=== PATIENT | male | born 1940 | race Caucasian/White ===

== ENCOUNTER → 2018-10-18 | Outpatient (REF) | payer MEDICARE, OTHER ==
[~2018-10-18] MED LIST: ATEN50TA2 OR; DILT180C3 OR; ECOT325T5 OR; FLOM0.4C39 OR; MULTIVIT OR; OMEGA FISH OIL OR; [UNRECOGNIZED DRUG - OTHER]
== END ==
LOC: M LAB REF 12:31
PROVIDERS: ATTEND Internal Medicine
DX: R30.0 Dysuria (principal)

== ENCOUNTER 2019-03-28 21:08 | Emergency (ER) | payer MEDICARE, OTHER ==
[~2019-03-28] VITALS: Ht 177.8 cm; Wt 86.4 kg
[2019-03-28] MEDS ORDERED: ATOR1TAB19 (21:35)
[2019-03-28] MEDS ORDERED: AMLO5TAB6 (21:35)
[2019-03-28] MEDS ORDERED: METF500T13 PO (21:36)
[2019-03-28] MEDS ORDERED: ONDANSETRON 4MG/2ML VIAL (J2405) IV ONE (22:00)
[2019-03-28] MEDS ORDERED: NS 1,000 ML IV ONE (22:00)
[2019-03-28 22:19] LABS: BASO % 0.3 % (0.0-1.0); EOS % 0.4 % (0.0-3.0); HEMATOCRIT 50.9 % (42.0-52.0); HEMOGLOBIN 16.7 g/dl (13.5-17.5); LYMPH # 0.5 10^3/uL (1.5-5.0); LYMPH % 7.4 % (24.0-44.0); MEAN CORPUSCULAR HEMOGLOBIN 30.6 pg (27.0-33.0); MEAN CORPUSCULAR HGB CONC 32.8 g/dl (32.0-36.5); MEAN CORPUSCULAR VOLUME 93.4 fl (80.0-96.0); MONO # 0.3 10^3/uL (0.0-0.8); MONO % 4.2 % (0.0-5.0); NEUTROPHILS # 6.2 10^3/uL (1.5-8.5); NEUTROPHILS % 87.3 % (36.0-66.0); PLATELET COUNT, AUTOMATED 163 10^3/uL (150-450); RED BLOOD COUNT 5.45 10^6/uL (4.30-6.10); WHITE BLOOD COUNT 7.1 10^3/uL (4.0-10.0)
[2019-03-28 22:37] LABS: ALBUMIN 3.8 GM/DL (3.2-5.2); ALT/SGPT 23 U/L (12-78); BILIRUBIN,DIRECT 0.3 MG/DL (0.0-0.2); BILIRUBIN,TOTAL 0.8 MG/DL (0.2-1.0); BLOOD UREA NITROGEN 19 MG/DL (7-18); CARBON DIOXIDE LEVEL 23 MEQ/L (21-32); CHLORIDE LEVEL 105 MEQ/L (98-107); CREATININE FOR GFR 0.89 MG/DL (0.70-1.30); GLOMERULAR FILTRATION RATE > 60.0 (>42); GLUCOSE, FASTING 191 MG/DL (70-100); LIPASE 118 U/L (73-393); POTASSIUM SERUM 4.1 MEQ/L (3.5-5.1); SODIUM LEVEL 140 MEQ/L (136-145); TOTAL PROTEIN 7.2 GM/DL (6.4-8.2)
[2019-03-29] MEDS ORDERED: ONDA4TAB6 PO (00:24)
[2019-03-29 01:01] VITALS: BP 145/78
--- NOTE | 2019-03-29 01:13 | REPVR ---
PROCEDURE INFORMATION: Exam: XR Complete Acute Abdomen Series Exam date and time: 03/28/2019 10:28 PM Age: 78 years old Clinical indication: Abdominal pain; Generalized TECHNIQUE: Imaging protocol: XR complete acute abdomen series, including 2 or more views of the abdomen and a single view chest. COMPARISON: No relevant prior studies available. FINDINGS: Lungs: Normal. No consolidation. Pleural space: Normal. No pneumothorax. Heart/Mediastinum: Normal. No cardiomegaly. Gastrointestinal tract: Minimal gas in the GI tract without abnormal dilatation. No abnormal air-fluid levels. Intraperitoneal space: No free air. Organs: Status post cholecystectomy. Bones/joints: Mild degenerative changes of the lower lumbar spine. Soft tissues: Normal. IMPRESSION: 1. Negative chest. 2. Status post cholecystectomy. 3. Otherwise negative abdomen with minimal gas. Electronically signed by: Fran Stauffer On 03/29/2019 01:12:44 AM
== END 2019-03-29 01:10 | disposition home or self-care (01) ==
LOC: M ED 21:08
DX: R11.2 Nausea with vomiting, unspecified (principal); R19.7 Diarrhea, unspecified; E11.9 Type 2 diabetes mellitus without complications; E78.5 Hyperlipidemia, unspecified; E86.0 Dehydration; I10 Essential (primary) hypertension; K21.9 Gastro-esophageal reflux disease without esophagitis; Z79.82 Long term (current) use of aspirin; Z79.84 Long term (current) use of oral hypoglycemic drugs; Z79.899 Other long term (current) drug therapy; Z87.442 Personal history of urinary calculi
CPT/HCPCS: 74021; 80048; 80076; 81001; 83690; 85025; 96361; 96374; 99284; J2405

== ENCOUNTER → 2019-03-29 | Outpatient (REF) | payer MEDICARE, OTHER ==
[~2019-03-29] MED LIST changes: +AMLO5TAB6; +ATOR1TAB19; +METF500T13 PO; +ONDA4TAB6 PO
== END ==
LOC: M LAB REF 13:18
PROVIDERS: ATTEND Physician Assistant
DX: R19.7 Diarrhea, unspecified (principal)

== ENCOUNTER → 2019-10-18 | Outpatient (CLI) | payer MEDICARE, OTHER ==
[~2019-10-18] MED LIST changes: +AMLO1TAB24; -AMLO5TAB6
== END ==
LOC: M LABSMTC 12:44
PROVIDERS: ATTEND Family Medicine
DX: Z11.59 Encounter for screening for other viral diseases (principal)
CPT/HCPCS: C9803; U0003

== ENCOUNTER → 2019-11-25 | Outpatient (REF) | payer MEDICARE, OTHER ==
[2019-11-25 13:37] LABS: PROTHROMBIN TIME 13.4 SECONDS (11.8-14.0)
[2019-11-25 13:38] LABS: PARTIAL THROMBOPLASTIN TIME 29.1 SECONDS (25.0-38.4)
[2019-11-25 13:50] LABS: APPEARANCE, URINE CLEAR (CLEAR); BACTERIA, URINE AUTO NEGATIVE (NEGATIVE); BILIRUBIN, URINE AUTO NEGATIVE (NEGATIVE); BLOOD, URINE BLOOD NEGATIVE (NEGATIVE); COLOR, URINE YELLOW (YELLOW); GLUCOSE, URINE (UA) AUTO 3+ mg/dL (NEGATIVE); KETONE, URINE AUTO NEGATIVE (NEGATIVE); LEUKOCYTE ESTERASE, URINE AUTO NEGATIVE (NEGATIVE); MUCUS, URINE SMALL (NEGATIVE); NITRITE, URINE AUTO NEGATIVE (NEGATIVE); PROTEIN, URINE AUTO NEGATIVE (NEGATIVE); RBC, URINE AUTO 1 /HPF (0-3); SPECIFIC GRAVITY URINE AUTO 1.031 (1.002-1.035); SQUAMOUS EPITHELIAL CELL UR AU 0 /HPF (0-6); UROBILINOGEN, URINE AUTO 0.2 mg/dL (0.0-2.0); WBC, URINE AUTO 1 /HPF (0-3)
== END ==
LOC: M LAB REF 11:57
PROVIDERS: ATTEND Internal Medicine
DX: N40.1 Benign prostatic hyperplasia with lower urinary tract symptoms (principal); N47.1 Phimosis; Z01.818 Encounter for other preprocedural examination; Z79.01 Long term (current) use of anticoagulants

== ENCOUNTER → 2020-02-03 | Outpatient (REF) | payer MEDICARE, OTHER | LOC: M LAB REF 11:05 | PROVIDERS: ATTEND Internal Medicine | DX: R30.0 Dysuria (principal) ==

== ENCOUNTER → 2020-05-03 | Outpatient (CLI) | payer MEDICARE, OTHER | LOC: M LABSMTC 13:33 | PROVIDERS: ATTEND Family Medicine | DX: Z20.822 Contact with and (suspected) exposure to COVID-19 (principal) | CPT/HCPCS: C9803; U0003 ==

== ENCOUNTER → 2021-05-14 | Outpatient (CLI) | payer MEDICARE, OTHER ==
[~2021-05-14] MED LIST changes: +E-Z-GAS II EFFERVESCENT PACKET (SODIUM BICARB./CITRIC ACID/SIMETHICONE) As Ordered ONE; +E-Z-HD 98% w/w 340GM SUSP BTL As Ordered ONE; +E-Z-PAQUE 96% w/w SUSP 176GM BTL As Ordered ONE
== END ==
LOC: M RAD 08:13
PROVIDERS: ATTEND Internal Medicine
DX: R11.0 Nausea (principal); R10.816 Epigastric abdominal tenderness

== ENCOUNTER → 2021-06-17 | Outpatient (CLI) | payer MEDICARE, OTHER ==
[~2021-06-17] MED LIST changes: -E-Z-GAS II EFFERVESCENT PACKET (SODIUM BICARB./CITRIC ACID/SIMETHICONE) As Ordered ONE; -E-Z-HD 98% w/w 340GM SUSP BTL As Ordered ONE; -E-Z-PAQUE 96% w/w SUSP 176GM BTL As Ordered ONE
== END ==
LOC: M RAD 12:57
PROVIDERS: ATTEND Internal Medicine
DX: M25.78 Osteophyte, vertebrae (principal); M51.36 Other intervertebral disc degeneration, lumbar region; M51.37 Other intervertebral disc degeneration, lumbosacral region

== ENCOUNTER 2021-07-28 00:13 | Observation (INO) | payer MEDICARE, OTHER ==
[2021-07-28] VITALS (12 sets, daily range): BP systolic 127–157; BP diastolic 56–82; O2SAT 90–98
[~2021-07-28] VITALS: Ht 177.8 cm; Wt 82.9 kg
[~2021-07-28 00:13] MED LIST changes: -AMLO1TAB24; +AMLO1TAB24 PO; -ATOR1TAB19; +ATOR1TAB19 PO
[2021-07-28 00:48] LABS: BASO % 0.7 % (0.0-1.0); EOS # 0.2 10^3/uL (0.0-0.5); EOS % 4.1 % (0.0-3.0); HEMATOCRIT 43.1 % (42.0-52.0); HEMOGLOBIN 14.4 g/dl (13.5-17.5); LYMPH # 2.6 10^3/uL (1.5-5.0); MEAN CORPUSCULAR HEMOGLOBIN 31.2 pg (27.0-33.0); MEAN CORPUSCULAR HGB CONC 33.4 g/dl (32.0-36.5); MEAN CORPUSCULAR VOLUME 93.5 fl (80.0-96.0); MONO # 0.6 10^3/uL (0.0-0.8); MONO % 10.8 % (2.0-8.0); NEUTROPHILS # 1.9 10^3/uL (1.5-8.5); NEUTROPHILS % 35.2 % (36.0-66.0); PLATELET COUNT, AUTOMATED 168 10^3/uL (150-450); RED BLOOD COUNT 4.61 10^6/uL (4.30-6.10); WHITE BLOOD COUNT 5.4 10^3/uL (4.0-10.0)
[2021-07-28 01:02] LABS: INR 1.09; PROTHROMBIN TIME 14.5 SECONDS (12.7-14.5)
[2021-07-28 01:03] LABS: ABG BASE EXCESS -6.8 (-2.0-2.0); ABG HCO3 17.3 MEQ/L (22.0-26.0); ABG O2 SATURATION 98.9 % (95.0-99.0); ABG PARTIAL PRESSURE CO2 30.9 mmHg (35.0-45.0); ABG PARTIAL PRESSURE O2 159.5 mmHg (75.0-100.0); ABG TOTAL CO2 18.3 MEQ/L (23.0-31.0); ABG pH (ARTERIAL) 7.366 UNITS (7.350-7.450)
[2021-07-28 01:03] LABS: PARTIAL THROMBOPLASTIN TIME 25.5 SECONDS (25.9-37.0)
[2021-07-28 01:19] LABS: ALBUMIN 3.2 GM/DL (3.2-5.2); ALT/SGPT 22 U/L (12-78); AMYLASE 47 U/L (25-115); BILIRUBIN,DIRECT 0.1 MG/DL (0.0-0.2); BILIRUBIN,TOTAL 0.4 MG/DL (0.2-1.0); C REACTIVE PROTEIN QUANTITATIV < 0.30 MG/DL (0.00-0.30); ETHYL ALCOHOL (ETHANOL) 0.085 % (0.000-0.010); TOTAL PROTEIN 5.2 GM/DL (6.4-8.2)
[2021-07-28 01:27] LABS: CK-MB VALUE MASS < 1.0 NG/ML (<3.6); CPK CREATINE PHOSPHOKINASE 92 U/L (39-308); MB/CK RELATIVE INDEX 1.09 (< OR =4)
[2021-07-28] MEDS ORDERED: ONDANSETRON 4MG/2ML VIAL IV ONE (02:15)
[2021-07-28] MEDS ORDERED: MORPHINE 4 MG/ML 1ML VIAL/SYRINGE IV ONE (02:15)
[2021-07-28 03:23] LABS: APPEARANCE, URINE CLEAR (CLEAR); BACTERIA, URINE AUTO NEGATIVE (NEGATIVE); BILIRUBIN, URINE AUTO NEGATIVE (NEGATIVE); BLOOD, URINE BLOOD NEGATIVE (NEGATIVE); COLOR, URINE YELLOW (YELLOW); GLUCOSE, URINE (UA) AUTO 3+ mg/dL (NEGATIVE); KETONE, URINE AUTO NEGATIVE (NEGATIVE); LEUKOCYTE ESTERASE, URINE AUTO NEGATIVE (NEGATIVE); MUCUS, URINE SMALL (NEGATIVE); NITRITE, URINE AUTO NEGATIVE (NEGATIVE); PROTEIN, URINE AUTO 1+ mg/dL (NEGATIVE); RBC, URINE AUTO 0 /HPF (0-3); SPECIFIC GRAVITY URINE AUTO 1.025 (1.002-1.035); SQUAMOUS EPITHELIAL CELL UR AU 0 /HPF (0-6); UROBILINOGEN, URINE AUTO 0.2 mg/dL (0.0-2.0); WBC, URINE AUTO 1 /HPF (0-3)
[2021-07-28 03:46] LABS: AMPHETAMINES LEVEL URINE NEGATIVE (NEGATIVE); BARBITURATES URINE NEGATIVE (NEGATIVE); BENZODIAZEPINES URINE NEGATIVE (NEGATIVE); CANNABINOIDS URINE POSITIVE (NEGATIVE); COCAINE METABOLITE URINE NEGATIVE (NEGATIVE); METHADONE URINE NEGATIVE (NEGATIVE); OPIATES URINE NEGATIVE (NEGATIVE); PHENCYCLIDINE URINE NEGATIVE (NEGATIVE)
[2021-07-28] MEDS ORDERED: TRUL0.5I SUBQ (03:48)
[2021-07-28] MEDS ORDERED: JARD1TAB PO (03:48)
[2021-07-28] MEDS ORDERED: ACET-1379 PO (03:48)
[2021-07-28] MEDS ORDERED: MONT10TA97 PO (03:48)
[2021-07-28] MEDS ORDERED: SERT25TA21 PO (03:48)
[2021-07-28] MEDS ORDERED: ROPI1TAB3 PO (03:48)
[2021-07-28] MEDS ORDERED: PANT40TA29 PO (03:48)
[2021-07-28] MEDS ORDERED: PRIM50TA6 PO (03:48)
[2021-07-28] MEDS ORDERED: ATEN50TA2 PO (03:48)
[2021-07-28] MEDS ORDERED: ASPI81TA26 PO (03:48)
[2021-07-28] MEDS ORDERED: OCUVTAB4 PO (03:51)
[2021-07-28] MEDS ORDERED: HOME MED LIST COMPLETE! XX SCH (03:55)
[2021-07-28] MEDS ORDERED: NS 1,000 ML IV ONE (05:40)
[2021-07-28] MEDS ORDERED: DEXTROSE 50% 50 ML SYRINGE IV PRN (05:40)
[2021-07-28] MEDS ORDERED: ACETAMINOPHEN TAB 650MG DOSE (2X325MG) PO PRN (05:40)
[2021-07-28] MEDS ORDERED: GLUCOSE 4GM CHEW TABLET PO PRN (05:40)
[2021-07-28] MEDS ORDERED: GLUCAGON INJ 1MG VIAL SC PRN (05:40)
[2021-07-28] MEDS: HYDROMORPHONE HCL 0.5 MG/ 0.5 ML SYRINGE (J1170 PER 1) IV PRN ×4 (06:06→21:08)
[2021-07-28] MEDS: HEPARIN SOD (PORCINE) 5000UNITS/ML 1ML VIAL/SYRINGE SC SCH ×2 (06:12→12:39)
[2021-07-28] MEDS: SERTRALINE HCL 25 MG TABLET PO SCH ×2 (08:28→20:57)
[2021-07-28] MEDS: HumaLOG INSULIN (NovoLOG) PER UNIT SC SCH ×3 (08:29→18:02)
[2021-07-28] MEDS: PANTOPRAZOLE 40MG TAB (PROTONIX) PO SCH ×2 (08:29→20:57)
[2021-07-28 08:30] LABS: HEMATOCRIT 43.5 % (42.0-52.0); HEMOGLOBIN 14.8 g/dl (13.5-17.5); MEAN CORPUSCULAR HEMOGLOBIN 31.4 pg (27.0-33.0); MEAN CORPUSCULAR VOLUME 92.4 fl (80.0-96.0); PLATELET COUNT, AUTOMATED 161 10^3/uL (150-450); RED BLOOD COUNT 4.71 10^6/uL (4.30-6.10); WHITE BLOOD COUNT 5.9 10^3/uL (4.0-10.0)
[2021-07-28] MEDS ORDERED: FOLIC ACID 1 MG TAB PO SCH (09:00)
[2021-07-28] MEDS ORDERED: atenoloL 50 MG TAB PO SCH (09:00)
[2021-07-28] MEDS ORDERED: ASPIRIN 81MG ENTERIC TABLET PO SCH (09:00)
[2021-07-28] MEDS ORDERED: rOPINIRole 1MG TAB PO SCH (09:00)
[2021-07-28] MEDS ORDERED: MULTIVITAMINS/MINERALS THERAP 1 TAB PO SCH (09:00)
[2021-07-28] MEDS ORDERED: dexameTHASONE 4 MG/ML 1ML VIAL (J1100 PER 1MG) IV SCH ×2 (09:00)
[2021-07-28] MEDS ORDERED: amLODIPine 5 MG TAB PO SCH (09:00)
[2021-07-28 09:09] LABS: CK-MB VALUE MASS 1.3 NG/ML (<3.6); MB/CK RELATIVE INDEX 0.55 (< OR =4)
[2021-07-28 09:10] LABS: ALBUMIN 3.9 GM/DL (3.2-5.2); ALT/SGPT 26 U/L (12-78); BILIRUBIN,TOTAL 0.6 MG/DL (0.2-1.0); BLOOD UREA NITROGEN 19 MG/DL (7-18); CALCIUM LEVEL 8.8 MG/DL (8.8-10.2); CARBON DIOXIDE LEVEL 25 MEQ/L (21-32); CHLORIDE LEVEL 109 MEQ/L (98-107); CREATININE FOR GFR 0.89 MG/DL (0.70-1.30); GLOMERULAR FILTRATION RATE > 60.0 (>35); GLUCOSE, FASTING 200 MG/DL (70-100); POTASSIUM SERUM 4.2 MEQ/L (3.5-5.1); SODIUM LEVEL 140 MEQ/L (136-145); TOTAL PROTEIN 6.7 GM/DL (6.4-8.2)
[2021-07-28] MEDS: PRIMIDONE 50MG TAB PO SCH ×2 (09:38→20:57)
[2021-07-28] MEDS ORDERED: LORazepam 2 MG TAB PO PRN (12:10)
[2021-07-28] MEDS: THIAMINE 100 MG TAB PO SCH ×2 (12:29→20:57)
[2021-07-28] MEDS: dexameTHASONE 4 MG/ML 1ML VIAL (J1100 PER 1MG) IV SCH ×2 (13:04→19:30)
[2021-07-28] MEDS: GABAPENTIN 300 MG CAP PO SCH ×2 (13:07→20:57)
[2021-07-28] MEDS ORDERED: HYDROMORPHONE HCL 0.5 MG/ 0.5 ML SYRINGE (J1170 PER 1) IV PRN (14:50)
[2021-07-28] MEDS ORDERED: GABA-282 PO (15:12)
[2021-07-28] MEDS ORDERED: dexameTHASONE IV (15:12)
[2021-07-28] MEDS ORDERED: ACET1TAB55 PO (15:12)
[2021-07-28] MEDS ORDERED: FOLI1TAB11 PO (15:12)
[2021-07-28] MEDS ORDERED: HEPA500023 SC (15:12)
[2021-07-28] MEDS ORDERED: DILA1INJ2 IV (15:19)
[2021-07-28] MEDS ORDERED: LORA2TA PO (15:19)
[2021-07-28] MEDS ORDERED: INSUHUMDS SC ×2 (15:19)
[2021-07-28] MEDS ORDERED: VITMTA PO (15:19)
[2021-07-28] MEDS ORDERED: THIA100TA PO (15:19)
[2021-07-28] MEDS ORDERED: HumaLOG INSULIN (NovoLOG) PER UNIT SC SCH (21:00)
[2021-07-28] MEDS ORDERED: ATORVASTATIN 10 MG TAB PO SCH (21:00)
[2021-07-28] MEDS ORDERED: MONTELUKAST 10 MG TAB PO SCH (21:00)
== END 2021-07-28 22:53 | disposition other institution (70) ==
LOC: M ED 00:13 → EDBD 00:13 → M ED INP 00:14 → M MSPAV 06:29 → M ICU 16:25
PROVIDERS: ADMIT Internal Medicine; ATTEND Internal Medicine
DX: R55 Syncope and collapse (principal); R53.1 Weakness; Z91.81 History of falling; E87.2 Acidosis; R50.9 Fever, unspecified; E11.9 Type 2 diabetes mellitus without complications; F10.129 Alcohol abuse with intoxication, unspecified; K21.9 Gastro-esophageal reflux disease without esophagitis; R00.1 Bradycardia, unspecified; F32.9 Major depressive disorder, single episode, unspecified; G25.81 Restless legs syndrome; Z79.84 Long term (current) use of oral hypoglycemic drugs; Z79.4 Long term (current) use of insulin; I10 Essential (primary) hypertension; Z79.82 Long term (current) use of aspirin; Z79.899 Other long term (current) drug therapy
CPT/HCPCS: 36415; 36600; 70450; 71045; 72125; 72156; 80053; 80307; 81001; 82077; 82150; 82550; 82553; 82803; 83605; 84484; 85025; 85027; 85610; 85730; 86140; 86850; 86900; 86901; 87040; 87088; 87186; 87798; 93005; 93041; 93306; 96372; 96374; 96375; 96376; 99285; G0378; J1100; J1170; J1644; J1815; J2270; J2405

== ENCOUNTER 2021-08-19 12:19 | Inpatient (IN) | payer MEDICARE, OTHER ==
[~2021-08-19] VITALS: Ht 177.8 cm; Wt 76.5 kg
[~2021-08-19 12:19] MED LIST changes: +ACET-1379 PO; +ACET1TAB55 PO; +ASPI81TA26 PO; +ATEN50TA2 PO; +DILA1INJ2 IV; +FOLI1TAB11 PO; +GABA-282 PO; +HEPA500023 SC; +INSUHUMDS SC; +JARD1TAB PO; +LORA2TA PO; +MONT10TA97 PO; +OCUVTAB4 PO; +PANT40TA29 PO; +PRIM50TA6 PO; +ROPI1TAB3 PO; +SERT25TA21 PO; +THIA100TA PO; +TRUL0.5I SUBQ; +VITMTA PO; +dexameTHASONE IV; +predniSONE 10 MG TAB PO SCH
[2021-08-19] MEDS ORDERED: GLUCOSE 4GM CHEW TABLET PO PRN (13:15)
[2021-08-19] MEDS ORDERED: GLUCAGON INJ 1MG VIAL SC PRN (13:15)
[2021-08-19] MEDS ORDERED: DEXTROSE 50% 50 ML SYRINGE IV PRN (13:15)
[2021-08-19] MEDS ORDERED: INSULIN LISPRO (NovoLOG) PER UNIT SC SCH ×2 (17:30→21:00)
[2021-08-19 18:00] VITALS: BP 146/84
[2021-08-19] MEDS ORDERED: ONDA1INJ2 IV (18:23)
[2021-08-19] MEDS ORDERED: ATOR1TAB19 GT (18:23)
[2021-08-19] MEDS ORDERED: ACET1TAB55 PO (18:23)
[2021-08-19] MEDS ORDERED: ARTIDRO OU (18:23)
[2021-08-19] MEDS ORDERED: ZYPR10TA GT (18:23)
[2021-08-19] MEDS ORDERED: ROPI1TAB3 GT (18:23)
[2021-08-19] MEDS ORDERED: PRIM50TA6 GT (18:23)
[2021-08-19] MEDS ORDERED: LOVE1INJ2 SC (18:23)
[2021-08-19] MEDS ORDERED: INSURSD SC (18:23)
[2021-08-19] MEDS ORDERED: PROB1CAP10 GT (18:23)
[2021-08-19] MEDS ORDERED: PROT1TAB2 GT (18:23)
[2021-08-19] MEDS ORDERED: SERT25TA21 PO (18:23)
[2021-08-19] MEDS ORDERED: BENZ1LOZ9 MT (18:23)
[2021-08-19] MEDS ORDERED: ATEN25TA PO (18:23)
[2021-08-19] MEDS ORDERED: APAP325T4 PO (18:23)
[2021-08-19] MEDS ORDERED: HOME MED LIST COMPLETE! XX SCH (18:25)
[2021-08-19] MEDS ORDERED: ALBUTEROL 90 MCG/ACT 8GM HFA INHALER INH PRN (18:35)
[2021-08-19] MEDS: REMEDY PHYTOPLEX Z-GUARD PASTE 113GM TUBE (FROM STOREROOM PRODUCT) TOP SCH ×2 (18:51→23:39)
[2021-08-19] MEDS: COMBIVENT RESPIMAT 100-20MCG INHALER 4GM INH SCH (19:33)
[2021-08-19 20:00] VITALS: BP 125/72
[2021-08-19] MEDS: MAGIC MOUTHWASH SUSPENSION BTL SSP SCH (20:07)
[2021-08-19] MEDS: guaiFENesin SYRUP 200MG 10ML UDC PEG SCH (22:15)
[2021-08-19] MEDS: ENOXAPARIN 30MG/0.3ML SYRINGE (J1650 PER 10MG) SC SCH (22:16)
[2021-08-19] MEDS: TRIAMCINOLONE ACET 0.1% CREAM 80 GM TOP SCH (22:16)
[2021-08-19] MEDS: OLANZapine 10 MG TAB PEG SCH (22:17)
[2021-08-19] MEDS: METAMUCIL (PSYLLIUM) PACKET PEG SCH (22:17)
[2021-08-19] MEDS: OMEPRAZOLE SUSPENSION 20MG 10ML ORAL SYRINGE PEG SCH (22:17)
[2021-08-19] MEDS: LOSARTAN 25 MG TAB PEG SCH (22:17)
[2021-08-19] MEDS: POLYVINYL ALCOHOL OPHTH SOLN 15 ML(LIQUITEARS) OU SCH (22:17)
[2021-08-19] MEDS: PRIMIDONE 50MG TAB PEG SCH (22:18)
[2021-08-19] MEDS: SERTRALINE HCL 25 MG TABLET PEG SCH (22:18)
[2021-08-19] MEDS: ATENOLOL 12.5MG PER 1/2 TABLET PEG SCH (22:37)
[2021-08-19] MEDS: CEFDINIR 300 MG CAP (OMNICEF) PEG SCH (22:37)
[2021-08-20 05:54] VITALS: BP 125/68
[2021-08-20] MEDS: REMEDY PHYTOPLEX Z-GUARD PASTE 113GM TUBE (FROM STOREROOM PRODUCT) TOP SCH ×3 (05:54→18:04)
[2021-08-20 06:50] LABS: BASO % 0.5 % (0.0-1.0); EOS # 0.2 10^3/uL (0.0-0.5); EOS % 1.8 % (0.0-3.0); HEMATOCRIT 35.8 % (42.0-52.0); HEMOGLOBIN 11.6 g/dl (13.5-17.5); LYMPH % 11.8 % (24.0-44.0); MEAN CORPUSCULAR HEMOGLOBIN 30.4 pg (27.0-33.0); MEAN CORPUSCULAR HGB CONC 32.4 g/dl (32.0-36.5); MONO # 0.8 10^3/uL (0.0-0.8); MONO % 9.5 % (2.0-8.0); NEUTROPHILS # 6.4 10^3/uL (1.5-8.5); NEUTROPHILS % 75.8 % (36.0-66.0); PLATELET COUNT, AUTOMATED 286 10^3/uL (150-450); RED BLOOD COUNT 3.81 10^6/uL (4.30-6.10); WHITE BLOOD COUNT 8.5 10^3/uL (4.0-10.0)
[2021-08-20 07:09] LABS: ALT/SGPT 75 U/L (12-78); BILIRUBIN,TOTAL 0.4 MG/DL (0.2-1.0); BLOOD UREA NITROGEN 33 MG/DL (7-18); CALCIUM LEVEL 9.1 MG/DL (8.8-10.2); CARBON DIOXIDE LEVEL 30 MEQ/L (21-32); CHLORIDE LEVEL 101 MEQ/L (98-107); CREATININE FOR GFR 0.72 MG/DL (0.70-1.30); GLOMERULAR FILTRATION RATE > 60.0 (>35); GLUCOSE, FASTING 314 MG/DL (70-100); POTASSIUM SERUM 4.3 MEQ/L (3.5-5.1); SODIUM LEVEL 137 MEQ/L (136-145); TOTAL PROTEIN 6.4 GM/DL (6.4-8.2)
[2021-08-20] MEDS: POLYVINYL ALCOHOL OPHTH SOLN 15 ML(LIQUITEARS) OU SCH ×3 (07:36→21:29)
[2021-08-20] MEDS: MAGIC MOUTHWASH SUSPENSION BTL SSP SCH ×3 (07:36→16:34)
[2021-08-20] MEDS: ENOXAPARIN 30MG/0.3ML SYRINGE (J1650 PER 10MG) SC SCH ×2 (07:37→21:26)
[2021-08-20] MEDS: OMEPRAZOLE SUSPENSION 20MG 10ML ORAL SYRINGE PEG SCH ×2 (07:37→21:26)
[2021-08-20] MEDS: TRIAMCINOLONE ACET 0.1% CREAM 80 GM TOP SCH ×2 (07:37→21:29)
[2021-08-20] MEDS: guaiFENesin SYRUP 200MG 10ML UDC PEG SCH ×3 (07:37→21:26)
[2021-08-20] MEDS: METAMUCIL (PSYLLIUM) PACKET PEG SCH ×2 (07:37→21:28)
[2021-08-20] MEDS: ATORVASTATIN 10 MG TAB PEG SCH (07:38)
[2021-08-20] MEDS: predniSONE 10 MG TAB PEG SCH (07:38)
[2021-08-20] MEDS: CEFDINIR 300 MG CAP (OMNICEF) PEG SCH ×2 (07:38→21:27)
[2021-08-20] MEDS: ASPIRIN 81 MG CHEW TABLET PEG SCH (07:38)
[2021-08-20] MEDS: amLODIPine 5 MG TAB PEG SCH (07:38)
[2021-08-20] MEDS: PRIMIDONE 50MG TAB PEG SCH ×2 (07:38→21:27)
[2021-08-20] MEDS: FIBER-CON 625 MG TAB PEG SCH (07:39)
[2021-08-20] MEDS: SERTRALINE HCL 25 MG TABLET PEG SCH ×2 (07:39→21:28)
[2021-08-20] MEDS: ATENOLOL 12.5MG PER 1/2 TABLET PEG SCH ×2 (07:39→21:28)
[2021-08-20] MEDS: COMBIVENT RESPIMAT 100-20MCG INHALER 4GM INH SCH ×4 (07:55→19:55)
[2021-08-20] MEDS ORDERED: ATENOLOL 12.5MG PER 1/2 TABLET PEG SCH (09:00)
[2021-08-20] MEDS ORDERED: LEVEMIR (INSULIN DETEMIR) 1 UNITS/0.01ML SC ONE (12:15)
[2021-08-20] MEDS: ASCORBIC ACID 500 MG TAB PEG SCH (12:21)
[2021-08-20] MEDS: ZINC SULFATE 220 MG CAP PEG SCH (12:21)
[2021-08-20 14:00] VITALS: BP 136/66
[2021-08-20] MEDS ORDERED: metroNIDAZOLE (FLAGYL) 500MG TABLET PO SCH (16:00)
[2021-08-20] MEDS: metroNIDAZOLE (FLAGYL) 500MG TABLET PEG SCH ×2 (16:34→21:27)
[2021-08-20] MEDS: INSULIN LISPRO (NovoLOG) PER UNIT SC SCH (18:04)
[2021-08-20 20:00] VITALS: BP 146/80
[2021-08-20] MEDS: OLANZapine 10 MG TAB PEG SCH (21:27)
[2021-08-20] MEDS: LOSARTAN 25 MG TAB PEG SCH (21:28)
[2021-08-21] MEDS: REMEDY PHYTOPLEX Z-GUARD PASTE 113GM TUBE (FROM STOREROOM PRODUCT) TOP SCH ×5 (00:15→20:30)
[2021-08-21] MEDS: INSULIN LISPRO (NovoLOG) PER UNIT SC SCH ×5 (00:15→20:28)
[2021-08-21 06:00] VITALS: BP 121/64
[2021-08-21 06:03] LABS: BASO % 0.4 % (0.0-1.0); EOS # 0.2 10^3/uL (0.0-0.5); EOS % 2.3 % (0.0-3.0); HEMATOCRIT 34.8 % (42.0-52.0); HEMOGLOBIN 11.3 g/dl (13.5-17.5); LYMPH # 1.1 10^3/uL (1.5-5.0); MEAN CORPUSCULAR HEMOGLOBIN 30.4 pg (27.0-33.0); MEAN CORPUSCULAR HGB CONC 32.5 g/dl (32.0-36.5); MEAN CORPUSCULAR VOLUME 93.5 fl (80.0-96.0); MONO # 0.9 10^3/uL (0.0-0.8); MONO % 11.9 % (2.0-8.0); NEUTROPHILS # 5.4 10^3/uL (1.5-8.5); NEUTROPHILS % 70.9 % (36.0-66.0); PLATELET COUNT, AUTOMATED 242 10^3/uL (150-450); RED BLOOD COUNT 3.72 10^6/uL (4.30-6.10); WHITE BLOOD COUNT 7.6 10^3/uL (4.0-10.0)
[2021-08-21 06:22] LABS: BLOOD UREA NITROGEN 31 MG/DL (7-18); CALCIUM LEVEL 8.4 MG/DL (8.8-10.2); CARBON DIOXIDE LEVEL 31 MEQ/L (21-32); CHLORIDE LEVEL 100 MEQ/L (98-107); CREATININE FOR GFR 0.63 MG/DL (0.70-1.30); GLOMERULAR FILTRATION RATE > 60.0 (>35); GLUCOSE, FASTING 258 MG/DL (70-100); POTASSIUM SERUM 4.3 MEQ/L (3.5-5.1); SODIUM LEVEL 137 MEQ/L (136-145)
[2021-08-21] MEDS: PRIMIDONE 50MG TAB PEG SCH ×2 (07:35→20:27)
[2021-08-21] MEDS: ENOXAPARIN 30MG/0.3ML SYRINGE (J1650 PER 10MG) SC SCH ×2 (07:35→20:26)
[2021-08-21] MEDS: ZINC SULFATE 220 MG CAP PEG SCH (07:35)
[2021-08-21] MEDS: guaiFENesin SYRUP 200MG 10ML UDC PEG SCH ×3 (07:36→20:26)
[2021-08-21] MEDS: LEVEMIR (INSULIN DETEMIR) 1 UNITS/0.01ML SC SCH (07:36)
[2021-08-21] MEDS: metroNIDAZOLE (FLAGYL) 500MG TABLET PEG SCH ×3 (07:36→20:27)
[2021-08-21] MEDS: ATENOLOL 12.5MG PER 1/2 TABLET PEG SCH ×2 (07:36→20:27)
[2021-08-21] MEDS: METAMUCIL (PSYLLIUM) PACKET PEG SCH ×2 (07:36→20:27)
[2021-08-21] MEDS: CEFDINIR 300 MG CAP (OMNICEF) PEG SCH ×2 (07:37→20:27)
[2021-08-21] MEDS: MAGIC MOUTHWASH SUSPENSION BTL SSP SCH ×3 (07:37→16:27)
[2021-08-21] MEDS: ASCORBIC ACID 500 MG TAB PEG SCH (07:37)
[2021-08-21] MEDS: FIBER-CON 625 MG TAB PEG SCH (07:37)
[2021-08-21] MEDS: SERTRALINE HCL 25 MG TABLET PEG SCH ×2 (07:37→20:28)
[2021-08-21] MEDS: POLYVINYL ALCOHOL OPHTH SOLN 15 ML(LIQUITEARS) OU SCH ×3 (07:37→20:29)
[2021-08-21] MEDS: ASPIRIN 81 MG CHEW TABLET PEG SCH (07:37)
[2021-08-21] MEDS: amLODIPine 5 MG TAB PEG SCH (07:37)
[2021-08-21] MEDS: predniSONE 10 MG TAB PEG SCH (07:37)
[2021-08-21] MEDS: TRIAMCINOLONE ACET 0.1% CREAM 80 GM TOP SCH ×2 (07:39→20:29)
[2021-08-21] MEDS: ATORVASTATIN 10 MG TAB PEG SCH (07:40)
[2021-08-21] MEDS: COMBIVENT RESPIMAT 100-20MCG INHALER 4GM INH SCH ×4 (07:42→20:00)
[2021-08-21] MEDS: OMEPRAZOLE SUSPENSION 20MG 10ML ORAL SYRINGE PEG SCH ×2 (07:58→20:26)
[2021-08-21] MEDS: PREPARATION H SUPP (HEMORRHOID) PR SCH ×2 (09:00→20:27)
[2021-08-21] MEDS ORDERED: VARIBAR NECTAR 40% w/v 240ML SUSP BTL As Ordered ONE (09:21)
[2021-08-21] MEDS ORDERED: VARIBAR PUDDING 40% w/v 230ML TUBE As Ordered ONE (09:21)
[2021-08-21] MEDS ORDERED: E-Z-PAQUE 96% w/w SUSP 176GM BTL As Ordered ONE (09:21)
[2021-08-21] MEDS ORDERED: BARIUM SULFATE 700 MG TABLET (E-Z-DISK) As Ordered ONE (09:21)
[2021-08-21] MEDS ORDERED: DEXTROSE 50% 50 ML SYRINGE IV PRN (12:35)
[2021-08-21] MEDS ORDERED: GLUCOSE 4GM CHEW TABLET PO PRN (12:35)
[2021-08-21] MEDS ORDERED: GLUCAGON INJ 1MG VIAL SC PRN (12:35)
[2021-08-21 14:00] VITALS: BP 102/55
[2021-08-21 20:00] VITALS: BP 112/60
[2021-08-21] MEDS: OLANZapine 10 MG TAB PEG SCH (20:27)
[2021-08-21] MEDS: traZODone 25MG PER 1/2 TABLET PO SCH (20:28)
[2021-08-21] MEDS: LOSARTAN 25 MG TAB PEG SCH (20:35)
[2021-08-22 06:00] VITALS: BP 118/64
[2021-08-22] MEDS: REMEDY PHYTOPLEX Z-GUARD PASTE 113GM TUBE (FROM STOREROOM PRODUCT) TOP SCH ×4 (06:15→21:28)
[2021-08-22] MEDS: COMBIVENT RESPIMAT 100-20MCG INHALER 4GM INH SCH ×4 (07:49→19:15)
[2021-08-22] MEDS: LEVEMIR (INSULIN DETEMIR) 1 UNITS/0.01ML SC SCH ×2 (08:03→21:25)
[2021-08-22] MEDS: ATORVASTATIN 10 MG TAB PEG SCH (08:04)
[2021-08-22] MEDS: ASPIRIN 81 MG CHEW TABLET PEG SCH (08:04)
[2021-08-22] MEDS: FIBER-CON 625 MG TAB PEG SCH (08:04)
[2021-08-22] MEDS: ASCORBIC ACID 500 MG TAB PEG SCH (08:04)
[2021-08-22] MEDS: ATENOLOL 12.5MG PER 1/2 TABLET PEG SCH ×2 (08:04→21:26)
[2021-08-22] MEDS: guaiFENesin SYRUP 200MG 10ML UDC PEG SCH ×3 (08:04→21:26)
[2021-08-22] MEDS: INSULIN LISPRO (NovoLOG) PER UNIT SC SCH ×4 (08:04→21:35)
[2021-08-22] MEDS: CEFDINIR 300 MG CAP (OMNICEF) PEG SCH ×2 (08:04→21:26)
[2021-08-22] MEDS: ZINC SULFATE 220 MG CAP PEG SCH (08:05)
[2021-08-22] MEDS: OMEPRAZOLE SUSPENSION 20MG 10ML ORAL SYRINGE PEG SCH ×2 (08:05→21:25)
[2021-08-22] MEDS: SERTRALINE HCL 25 MG TABLET PEG SCH ×2 (08:05→21:26)
[2021-08-22] MEDS: metroNIDAZOLE (FLAGYL) 500MG TABLET PEG SCH ×3 (08:05→21:26)
[2021-08-22] MEDS: predniSONE 10 MG TAB PEG SCH (08:05)
[2021-08-22] MEDS: amLODIPine 5 MG TAB PEG SCH (08:05)
[2021-08-22] MEDS: PRIMIDONE 50MG TAB PEG SCH ×2 (08:05→21:27)
[2021-08-22] MEDS: METAMUCIL (PSYLLIUM) PACKET PEG SCH ×2 (08:05→21:26)
[2021-08-22] MEDS: ENOXAPARIN 30MG/0.3ML SYRINGE (J1650 PER 10MG) SC SCH ×2 (08:06→21:25)
[2021-08-22] MEDS: MAGIC MOUTHWASH SUSPENSION BTL SSP SCH ×3 (08:06→16:46)
[2021-08-22] MEDS: TRIAMCINOLONE ACET 0.1% CREAM 80 GM TOP SCH ×2 (08:06→21:27)
[2021-08-22] MEDS: PREPARATION H SUPP (HEMORRHOID) PR SCH ×2 (08:06→21:26)
[2021-08-22] MEDS: POLYVINYL ALCOHOL OPHTH SOLN 15 ML(LIQUITEARS) OU SCH ×3 (08:07→21:25)
[2021-08-22 14:00] VITALS: BP 132/80
[2021-08-22] MEDS: SALIVA SUBSTITUTE(MOUTHKOTE) BTL MT SCH ×2 (16:45→21:25)
[2021-08-22 20:25] VITALS: BP 146/67
[2021-08-22] MEDS: OLANZapine 10 MG TAB PEG SCH (21:26)
[2021-08-22] MEDS: traZODone 25MG PER 1/2 TABLET PO SCH (21:26)
[2021-08-22] MEDS: LOSARTAN 25 MG TAB PEG SCH (21:27)
[2021-08-23 05:27] VITALS: BP 110/62
[2021-08-23] MEDS: REMEDY PHYTOPLEX Z-GUARD PASTE 113GM TUBE (FROM STOREROOM PRODUCT) TOP SCH ×3 (06:02→16:58)
[2021-08-23] MEDS: COMBIVENT RESPIMAT 100-20MCG INHALER 4GM INH SCH ×4 (06:17→20:25)
[2021-08-23 08:07] LABS: BASO % 0.2 % (0.0-1.0); EOS # 0.1 10^3/uL (0.0-0.5); EOS % 1.1 % (0.0-3.0); HEMATOCRIT 34.9 % (42.0-52.0); HEMOGLOBIN 11.3 g/dl (13.5-17.5); LYMPH # 1.7 10^3/uL (1.5-5.0); LYMPH % 15.8 % (24.0-44.0); MEAN CORPUSCULAR HEMOGLOBIN 30.5 pg (27.0-33.0); MEAN CORPUSCULAR HGB CONC 32.4 g/dl (32.0-36.5); MEAN CORPUSCULAR VOLUME 94.3 fl (80.0-96.0); MONO # 1.1 10^3/uL (0.0-0.8); NEUTROPHILS # 7.7 10^3/uL (1.5-8.5); NEUTROPHILS % 71.7 % (36.0-66.0); PLATELET COUNT, AUTOMATED 224 10^3/uL (150-450); WHITE BLOOD COUNT 10.8 10^3/uL (4.0-10.0)
[2021-08-23] MEDS: MAGIC MOUTHWASH SUSPENSION BTL SSP SCH ×3 (08:21→16:57)
[2021-08-23] MEDS: INSULIN LISPRO (NovoLOG) PER UNIT SC SCH ×4 (08:21→21:41)
[2021-08-23] MEDS: LEVEMIR (INSULIN DETEMIR) 1 UNITS/0.01ML SC SCH ×2 (08:21→21:40)
[2021-08-23] MEDS: metroNIDAZOLE (FLAGYL) 500MG TABLET PEG SCH ×3 (08:21→21:43)
[2021-08-23] MEDS: SERTRALINE HCL 25 MG TABLET PEG SCH ×2 (08:22→21:43)
[2021-08-23] MEDS: ATORVASTATIN 10 MG TAB PEG SCH (08:22)
[2021-08-23] MEDS: FIBER-CON 625 MG TAB PEG SCH (08:22)
[2021-08-23] MEDS: ASCORBIC ACID 500 MG TAB PEG SCH (08:22)
[2021-08-23] MEDS: METAMUCIL (PSYLLIUM) PACKET PEG SCH ×2 (08:22→21:39)
[2021-08-23] MEDS: ENOXAPARIN 30MG/0.3ML SYRINGE (J1650 PER 10MG) SC SCH ×2 (08:22→21:41)
[2021-08-23] MEDS: PRIMIDONE 50MG TAB PEG SCH ×2 (08:22→21:42)
[2021-08-23] MEDS: amLODIPine 5 MG TAB PEG SCH (08:22)
[2021-08-23] MEDS: ZINC SULFATE 220 MG CAP PEG SCH (08:22)
[2021-08-23] MEDS: CEFDINIR 300 MG CAP (OMNICEF) PEG SCH ×2 (08:22→21:43)
[2021-08-23] MEDS: POLYVINYL ALCOHOL OPHTH SOLN 15 ML(LIQUITEARS) OU SCH ×3 (08:23→21:38)
[2021-08-23] MEDS: PREPARATION H SUPP (HEMORRHOID) PR SCH ×2 (08:23→21:43)
[2021-08-23] MEDS: TRIAMCINOLONE ACET 0.1% CREAM 80 GM TOP SCH ×2 (08:23→21:39)
[2021-08-23] MEDS: SALIVA SUBSTITUTE(MOUTHKOTE) BTL MT SCH ×4 (08:23→21:38)
[2021-08-23] MEDS: predniSONE 10 MG TAB PEG SCH (08:23)
[2021-08-23] MEDS: ASPIRIN 81 MG CHEW TABLET PEG SCH (08:23)
[2021-08-23] MEDS: guaiFENesin SYRUP 200MG 10ML UDC PEG SCH ×3 (08:24→21:41)
[2021-08-23] MEDS: OMEPRAZOLE SUSPENSION 20MG 10ML ORAL SYRINGE PEG SCH ×2 (08:24→21:42)
[2021-08-23] MEDS: ATENOLOL 12.5MG PER 1/2 TABLET PEG SCH ×2 (08:24→21:42)
[2021-08-23 08:34] LABS: BLOOD UREA NITROGEN 25 MG/DL (7-18); CALCIUM LEVEL 8.3 MG/DL (8.8-10.2); CARBON DIOXIDE LEVEL 34 MEQ/L (21-32); CHLORIDE LEVEL 100 MEQ/L (98-107); CREATININE FOR GFR 0.62 MG/DL (0.70-1.30); GLOMERULAR FILTRATION RATE > 60.0 (>35); GLUCOSE, FASTING 244 MG/DL (70-100); SODIUM LEVEL 138 MEQ/L (136-145)
[2021-08-23 14:00] VITALS: BP 94/51
[2021-08-23 20:00] VITALS: BP 121/60
[2021-08-23] MEDS: traZODone 25MG PER 1/2 TABLET PO SCH (21:42)
[2021-08-23] MEDS: OLANZapine 10 MG TAB PEG SCH (21:42)
[2021-08-23] MEDS: LOSARTAN 25 MG TAB PEG SCH (21:43)
[2021-08-24] MEDS: traZODone 25MG PER 1/2 TABLET PO PRN ×2 (00:37→23:14)
[2021-08-24] MEDS: REMEDY PHYTOPLEX Z-GUARD PASTE 113GM TUBE (FROM STOREROOM PRODUCT) TOP SCH ×5 (00:38→23:15)
[2021-08-24 06:00] VITALS: BP 118/72
[2021-08-24] MEDS: COMBIVENT RESPIMAT 100-20MCG INHALER 4GM INH SCH ×4 (07:22→19:49)
[2021-08-24] MEDS: predniSONE 10 MG TAB PEG SCH (07:27)
[2021-08-24] MEDS: SERTRALINE HCL 25 MG TABLET PEG SCH ×2 (07:28→21:03)
[2021-08-24] MEDS: PRIMIDONE 50MG TAB PEG SCH ×2 (07:28→21:03)
[2021-08-24] MEDS: ASCORBIC ACID 500 MG TAB PEG SCH (07:28)
[2021-08-24] MEDS: ATENOLOL 12.5MG PER 1/2 TABLET PEG SCH ×2 (07:28→21:03)
[2021-08-24] MEDS: ATORVASTATIN 10 MG TAB PEG SCH (07:28)
[2021-08-24] MEDS: amLODIPine 5 MG TAB PEG SCH (07:28)
[2021-08-24] MEDS: ZINC SULFATE 220 MG CAP PEG SCH (07:28)
[2021-08-24] MEDS: CEFDINIR 300 MG CAP (OMNICEF) PEG SCH ×2 (07:28→21:03)
[2021-08-24] MEDS: METAMUCIL (PSYLLIUM) PACKET PEG SCH ×2 (07:29→21:07)
[2021-08-24] MEDS: ENOXAPARIN 30MG/0.3ML SYRINGE (J1650 PER 10MG) SC SCH ×2 (07:29→21:04)
[2021-08-24] MEDS: ASPIRIN 81 MG CHEW TABLET PEG SCH (07:29)
[2021-08-24] MEDS: FIBER-CON 625 MG TAB PEG SCH (07:29)
[2021-08-24] MEDS: PREPARATION H SUPP (HEMORRHOID) PR SCH ×2 (07:29→21:03)
[2021-08-24] MEDS: guaiFENesin SYRUP 200MG 10ML UDC PEG SCH ×3 (07:29→21:02)
[2021-08-24] MEDS: metroNIDAZOLE (FLAGYL) 500MG TABLET PEG SCH ×3 (07:29→21:03)
[2021-08-24] MEDS: SALIVA SUBSTITUTE(MOUTHKOTE) BTL MT SCH ×4 (07:30→21:04)
[2021-08-24] MEDS: INSULIN LISPRO (NovoLOG) PER UNIT SC SCH ×4 (07:30→21:05)
[2021-08-24] MEDS: MAGIC MOUTHWASH SUSPENSION BTL SSP SCH ×3 (07:30→18:09)
[2021-08-24] MEDS: POLYVINYL ALCOHOL OPHTH SOLN 15 ML(LIQUITEARS) OU SCH ×3 (07:30→21:04)
[2021-08-24] MEDS: LEVEMIR (INSULIN DETEMIR) 1 UNITS/0.01ML SC SCH ×2 (07:30→21:05)
[2021-08-24] MEDS: TRIAMCINOLONE ACET 0.1% CREAM 80 GM TOP SCH ×2 (07:31→21:06)
[2021-08-24] MEDS: OMEPRAZOLE SUSPENSION 20MG 10ML ORAL SYRINGE PEG SCH ×2 (07:54→21:02)
[2021-08-24 14:00] VITALS: BP 119/59
[2021-08-24 20:00] VITALS: BP 132/68
[2021-08-24] MEDS: traZODone 25MG PER 1/2 TABLET PO SCH (21:03)
[2021-08-24] MEDS: OLANZapine 10 MG TAB PEG SCH (21:03)
[2021-08-24] MEDS: LOSARTAN 25 MG TAB PEG SCH (21:04)
[2021-08-25] MEDS: REMEDY PHYTOPLEX Z-GUARD PASTE 113GM TUBE (FROM STOREROOM PRODUCT) TOP SCH ×4 (05:18→20:30)
[2021-08-25 06:00] VITALS: BP 116/60
[2021-08-25] MEDS: COMBIVENT RESPIMAT 100-20MCG INHALER 4GM INH SCH ×4 (07:19→20:35)
[2021-08-25] MEDS: METAMUCIL (PSYLLIUM) PACKET PEG SCH ×2 (08:15→20:24)
[2021-08-25] MEDS: ATENOLOL 12.5MG PER 1/2 TABLET PEG SCH ×2 (08:15→20:25)
[2021-08-25] MEDS: metroNIDAZOLE (FLAGYL) 500MG TABLET PEG SCH ×3 (08:15→20:25)
[2021-08-25] MEDS: ENOXAPARIN 30MG/0.3ML SYRINGE (J1650 PER 10MG) SC SCH ×2 (08:15→20:24)
[2021-08-25] MEDS: CEFDINIR 300 MG CAP (OMNICEF) PEG SCH ×2 (08:15→20:24)
[2021-08-25] MEDS: FIBER-CON 625 MG TAB PEG SCH (08:15)
[2021-08-25] MEDS: PREPARATION H SUPP (HEMORRHOID) PR SCH ×2 (08:15→20:24)
[2021-08-25] MEDS: ASPIRIN 81 MG CHEW TABLET PEG SCH (08:16)
[2021-08-25] MEDS: LEVEMIR (INSULIN DETEMIR) 1 UNITS/0.01ML SC SCH ×2 (08:16→20:23)
[2021-08-25] MEDS: INSULIN LISPRO (NovoLOG) PER UNIT SC SCH ×4 (08:16→20:30)
[2021-08-25] MEDS: amLODIPine 5 MG TAB PEG SCH (08:17)
[2021-08-25] MEDS: ZINC SULFATE 220 MG CAP PEG SCH (08:17)
[2021-08-25] MEDS: SERTRALINE HCL 25 MG TABLET PEG SCH ×2 (08:17→20:25)
[2021-08-25] MEDS: guaiFENesin SYRUP 200MG 10ML UDC PEG SCH ×3 (08:17→20:24)
[2021-08-25] MEDS: OMEPRAZOLE SUSPENSION 20MG 10ML ORAL SYRINGE PEG SCH ×2 (08:17→20:24)
[2021-08-25] MEDS: ATORVASTATIN 10 MG TAB PEG SCH (08:17)
[2021-08-25] MEDS: MAGIC MOUTHWASH SUSPENSION BTL SSP SCH ×3 (08:17→18:15)
[2021-08-25] MEDS: ASCORBIC ACID 500 MG TAB PEG SCH (08:17)
[2021-08-25] MEDS: SALIVA SUBSTITUTE(MOUTHKOTE) BTL MT SCH ×4 (08:17→21:00)
[2021-08-25] MEDS: PRIMIDONE 50MG TAB PEG SCH ×2 (08:17→20:30)
[2021-08-25] MEDS: POLYVINYL ALCOHOL OPHTH SOLN 15 ML(LIQUITEARS) OU SCH ×3 (08:18→20:27)
[2021-08-25] MEDS: TRIAMCINOLONE ACET 0.1% CREAM 80 GM TOP SCH ×2 (08:18→20:27)
[2021-08-25 14:00] VITALS: BP 120/56
[2021-08-25 19:51] VITALS: BP 140/72
[2021-08-25] MEDS: LOSARTAN 25 MG TAB PEG SCH (20:25)
[2021-08-25] MEDS: traZODone 25MG PER 1/2 TABLET PO SCH (20:25)
[2021-08-25] MEDS: OLANZapine 10 MG TAB PEG SCH (20:25)
[2021-08-26] MEDS ORDERED: IPRATROPIUM 0.5MG/ALBUTEROL 2.5MG INH SOL UD 3ML (DUONEB) NEB PRN (03:25)
[2021-08-26] MEDS ORDERED: ACETAMINOPHEN 325 MG/10.15 ML UDC PEG PRN (04:10)
[2021-08-26] MEDS: REMEDY PHYTOPLEX Z-GUARD PASTE 113GM TUBE (FROM STOREROOM PRODUCT) TOP SCH ×4 (04:23→21:15)
[2021-08-26 04:57] VITALS: BP 100/52
[2021-08-26] MEDS: COMBIVENT RESPIMAT 100-20MCG INHALER 4GM INH SCH ×4 (07:26→19:23)
[2021-08-26 07:48] LABS: BASO % 0.4 % (0.0-1.0); EOS # 0.2 10^3/uL (0.0-0.5); HEMOGLOBIN 11.1 g/dl (13.5-17.5); LYMPH # 1.5 10^3/uL (1.5-5.0); LYMPH % 18.6 % (24.0-44.0); MEAN CORPUSCULAR HEMOGLOBIN 31.1 pg (27.0-33.0); MEAN CORPUSCULAR HGB CONC 32.6 g/dl (32.0-36.5); MEAN CORPUSCULAR VOLUME 95.2 fl (80.0-96.0); MONO # 0.7 10^3/uL (0.0-0.8); MONO % 8.9 % (2.0-8.0); NEUTROPHILS # 5.5 10^3/uL (1.5-8.5); PLATELET COUNT, AUTOMATED 211 10^3/uL (150-450); RED BLOOD COUNT 3.57 10^6/uL (4.30-6.10)
[2021-08-26 08:04] LABS: BLOOD UREA NITROGEN 18 MG/DL (7-18); CALCIUM LEVEL 7.8 MG/DL (8.8-10.2); CARBON DIOXIDE LEVEL 34 MEQ/L (21-32); CHLORIDE LEVEL 98 MEQ/L (98-107); CREATININE FOR GFR 0.56 MG/DL (0.70-1.30); GLOMERULAR FILTRATION RATE > 60.0 (>35); GLUCOSE, FASTING 237 MG/DL (70-100); POTASSIUM SERUM 4.3 MEQ/L (3.5-5.1); SODIUM LEVEL 137 MEQ/L (136-145)
[2021-08-26] MEDS: amLODIPine 5 MG TAB PEG SCH (09:00)
[2021-08-26] MEDS: ATENOLOL 12.5MG PER 1/2 TABLET PEG SCH ×2 (09:00→21:18)
[2021-08-26] MEDS: MAGIC MOUTHWASH SUSPENSION BTL SSP SCH ×3 (10:16→17:49)
[2021-08-26] MEDS: INSULIN LISPRO (NovoLOG) PER UNIT SC SCH ×4 (10:17→21:17)
[2021-08-26] MEDS: metFORMIN (GLUCOPHAGE) 500MG TAB PO SCH (10:17)
[2021-08-26] MEDS: ASCORBIC ACID 500 MG TAB PEG SCH (10:45)
[2021-08-26] MEDS: ZINC SULFATE 220 MG CAP PEG SCH (10:45)
[2021-08-26] MEDS: CEFDINIR 300 MG CAP (OMNICEF) PEG SCH ×2 (10:45→21:17)
[2021-08-26] MEDS: FIBER-CON 625 MG TAB PEG SCH (10:45)
[2021-08-26] MEDS: ASPIRIN 81 MG CHEW TABLET PEG SCH (10:45)
[2021-08-26] MEDS: guaiFENesin SYRUP 200MG 10ML UDC PEG SCH ×3 (10:45→21:17)
[2021-08-26] MEDS: ATORVASTATIN 10 MG TAB PEG SCH (10:46)
[2021-08-26] MEDS: PRIMIDONE 50MG TAB PEG SCH ×2 (10:46→21:19)
[2021-08-26] MEDS: SERTRALINE HCL 25 MG TABLET PEG SCH ×2 (10:46→21:19)
[2021-08-26] MEDS: metroNIDAZOLE (FLAGYL) 500MG TABLET PEG SCH ×3 (10:47→21:18)
[2021-08-26] MEDS: METAMUCIL (PSYLLIUM) PACKET PEG SCH ×2 (10:47→21:17)
[2021-08-26] MEDS: SALIVA SUBSTITUTE(MOUTHKOTE) BTL MT SCH ×4 (10:47→21:15)
[2021-08-26] MEDS: ENOXAPARIN 30MG/0.3ML SYRINGE (J1650 PER 10MG) SC SCH ×2 (10:48→21:16)
[2021-08-26] MEDS: POLYVINYL ALCOHOL OPHTH SOLN 15 ML(LIQUITEARS) OU SCH ×3 (10:49→21:16)
[2021-08-26] MEDS: LEVEMIR (INSULIN DETEMIR) 1 UNITS/0.01ML SC SCH ×2 (10:49→21:17)
[2021-08-26] MEDS: PREPARATION H SUPP (HEMORRHOID) PR SCH ×2 (10:50→21:00)
[2021-08-26] MEDS: TRIAMCINOLONE ACET 0.1% CREAM 80 GM TOP SCH ×2 (10:51→21:16)
[2021-08-26] MEDS: OMEPRAZOLE SUSPENSION 20MG 10ML ORAL SYRINGE PEG SCH ×2 (10:54→21:16)
[2021-08-26] MEDS: predniSONE 10 MG TAB PEG SCH (13:32)
[2021-08-26 14:00] VITALS: BP 106/66
[2021-08-26 20:00] VITALS: BP 114/58
[2021-08-26] MEDS: LOSARTAN 25 MG TAB PEG SCH (20:24)
[2021-08-26] MEDS: traZODone 25MG PER 1/2 TABLET PO SCH (21:17)
[2021-08-26] MEDS: OLANZapine 10 MG TAB PEG SCH (21:18)
[2021-08-27] MEDS: REMEDY PHYTOPLEX Z-GUARD PASTE 113GM TUBE (FROM STOREROOM PRODUCT) TOP SCH ×4 (04:08→21:37)
[2021-08-27 06:03] VITALS: BP 133/71
[2021-08-27] MEDS: COMBIVENT RESPIMAT 100-20MCG INHALER 4GM INH SCH ×4 (07:19→20:05)
[2021-08-27] MEDS: MAGIC MOUTHWASH SUSPENSION BTL SSP SCH ×3 (07:41→17:34)
[2021-08-27] MEDS: guaiFENesin SYRUP 200MG 10ML UDC PEG SCH ×3 (07:42→21:35)
[2021-08-27] MEDS: INSULIN LISPRO (NovoLOG) PER UNIT SC SCH ×4 (07:42→21:35)
[2021-08-27] MEDS: LEVEMIR (INSULIN DETEMIR) 1 UNITS/0.01ML SC SCH ×2 (07:42→21:34)
[2021-08-27] MEDS: metFORMIN (GLUCOPHAGE) 500MG TAB PO SCH ×2 (07:43→17:35)
[2021-08-27] MEDS: OMEPRAZOLE SUSPENSION 20MG 10ML ORAL SYRINGE PEG SCH ×2 (07:43→21:33)
[2021-08-27] MEDS: ATORVASTATIN 10 MG TAB PEG SCH (07:43)
[2021-08-27] MEDS: ZINC SULFATE 220 MG CAP PEG SCH (07:43)
[2021-08-27] MEDS: PRIMIDONE 50MG TAB PEG SCH ×2 (07:43→21:35)
[2021-08-27] MEDS: SERTRALINE HCL 25 MG TABLET PEG SCH ×2 (07:43→21:36)
[2021-08-27] MEDS: ASPIRIN 81 MG CHEW TABLET PEG SCH (07:43)
[2021-08-27] MEDS: amLODIPine 5 MG TAB PEG SCH (07:44)
[2021-08-27] MEDS: METAMUCIL (PSYLLIUM) PACKET PEG SCH ×2 (07:44→21:36)
[2021-08-27] MEDS: ATENOLOL 12.5MG PER 1/2 TABLET PEG SCH ×2 (07:44→21:36)
[2021-08-27] MEDS: ASCORBIC ACID 500 MG TAB PEG SCH (07:44)
[2021-08-27] MEDS: predniSONE 10 MG TAB PEG SCH (07:44)
[2021-08-27] MEDS: CEFDINIR 300 MG CAP (OMNICEF) PEG SCH ×2 (07:45→21:35)
[2021-08-27] MEDS: SALIVA SUBSTITUTE(MOUTHKOTE) BTL MT SCH ×4 (07:45→21:33)
[2021-08-27] MEDS: metroNIDAZOLE (FLAGYL) 500MG TABLET PEG SCH (07:45)
[2021-08-27] MEDS: FIBER-CON 625 MG TAB PEG SCH (07:45)
[2021-08-27] MEDS: PREPARATION H SUPP (HEMORRHOID) PR SCH ×2 (07:46→21:35)
[2021-08-27] MEDS: ENOXAPARIN 30MG/0.3ML SYRINGE (J1650 PER 10MG) SC SCH ×2 (07:46→21:33)
[2021-08-27] MEDS: POLYVINYL ALCOHOL OPHTH SOLN 15 ML(LIQUITEARS) OU SCH ×3 (07:46→21:36)
[2021-08-27] MEDS: TRIAMCINOLONE ACET 0.1% CREAM 80 GM TOP SCH ×2 (07:47→21:37)
[2021-08-27 14:00] VITALS: BP 121/69
[2021-08-27] MEDS ORDERED: REMEDY PHYTOPLEX Z-GUARD PASTE 113GM TUBE (FROM STOREROOM PRODUCT) TOP PRN (16:15)
[2021-08-27] MEDS: PIPERACILLIN/TAZOBACTAM SOD 4.5 GM in D5W MINI-BAG PLUS 50 ML IV SCH (18:24)
[2021-08-27 20:00] VITALS: BP 127/64
[2021-08-27] MEDS: BUDESONIDE 0.25 MG/2 ML INHALATION SUSPENSION INH SCH (20:05)
[2021-08-27] MEDS: OLANZapine 10 MG TAB PEG SCH (21:35)
[2021-08-27] MEDS: traZODone 25MG PER 1/2 TABLET PO SCH (21:35)
[2021-08-27] MEDS: LOSARTAN 25 MG TAB PEG SCH (21:35)
[2021-08-28] MEDS: PIPERACILLIN/TAZOBACTAM SOD 4.5 GM in D5W MINI-BAG PLUS 50 ML IV SCH ×5 (00:05→23:27)
[2021-08-28] MEDS: REMEDY PHYTOPLEX Z-GUARD PASTE 113GM TUBE (FROM STOREROOM PRODUCT) TOP SCH ×7 (01:00→23:27)
[2021-08-28 06:00] VITALS: BP 132/67
[2021-08-28 06:56] LABS: BASO % 0.5 % (0.0-1.0); EOS # 0.1 10^3/uL (0.0-0.5); EOS % 1.5 % (0.0-3.0); HEMATOCRIT 34.5 % (42.0-52.0); HEMOGLOBIN 11.1 g/dl (13.5-17.5); LYMPH # 1.8 10^3/uL (1.5-5.0); LYMPH % 20.2 % (24.0-44.0); MEAN CORPUSCULAR HEMOGLOBIN 30.6 pg (27.0-33.0); MEAN CORPUSCULAR HGB CONC 32.2 g/dl (32.0-36.5); MONO # 0.8 10^3/uL (0.0-0.8); MONO % 9.4 % (2.0-8.0); NEUTROPHILS # 5.9 10^3/uL (1.5-8.5); NEUTROPHILS % 66.8 % (36.0-66.0); PLATELET COUNT, AUTOMATED 236 10^3/uL (150-450); RED BLOOD COUNT 3.63 10^6/uL (4.30-6.10); WHITE BLOOD COUNT 8.9 10^3/uL (4.0-10.0)
[2021-08-28 07:19] LABS: BLOOD UREA NITROGEN 20 MG/DL (7-18); CALCIUM LEVEL 8.8 MG/DL (8.8-10.2); CARBON DIOXIDE LEVEL 33 MEQ/L (21-32); CHLORIDE LEVEL 98 MEQ/L (98-107); CREATININE FOR GFR 0.54 MG/DL (0.70-1.30); GLOMERULAR FILTRATION RATE > 60.0 (>35); GLUCOSE, FASTING 230 MG/DL (70-100); POTASSIUM SERUM 4.1 MEQ/L (3.5-5.1); SODIUM LEVEL 139 MEQ/L (136-145)
[2021-08-28] MEDS: BUDESONIDE 0.25 MG/2 ML INHALATION SUSPENSION INH SCH ×2 (07:31→19:33)
[2021-08-28] MEDS: TIOTROPIUM INHALER/CAPSULE (SPIRIVA) INH SCH (07:31)
[2021-08-28] MEDS: COMBIVENT RESPIMAT 100-20MCG INHALER 4GM INH SCH ×4 (07:31→19:33)
[2021-08-28] MEDS: ENOXAPARIN 30MG/0.3ML SYRINGE (J1650 PER 10MG) SC SCH ×2 (08:16→21:35)
[2021-08-28] MEDS: PREPARATION H SUPP (HEMORRHOID) PR SCH ×2 (08:17→21:37)
[2021-08-28] MEDS: LEVEMIR (INSULIN DETEMIR) 1 UNITS/0.01ML SC SCH ×2 (08:17→21:39)
[2021-08-28] MEDS: INSULIN LISPRO (NovoLOG) PER UNIT SC SCH ×4 (08:17→21:00)
[2021-08-28] MEDS: amLODIPine 5 MG TAB PEG SCH (08:17)
[2021-08-28] MEDS: guaiFENesin SYRUP 200MG 10ML UDC PEG SCH ×3 (08:17→21:35)
[2021-08-28] MEDS: METAMUCIL (PSYLLIUM) PACKET PEG SCH ×2 (08:18→21:38)
[2021-08-28] MEDS: ATENOLOL 12.5MG PER 1/2 TABLET PEG SCH ×2 (08:18→21:36)
[2021-08-28] MEDS: metFORMIN (GLUCOPHAGE) 500MG TAB PO SCH ×2 (08:18→17:35)
[2021-08-28] MEDS: ASPIRIN 81 MG CHEW TABLET PEG SCH (08:18)
[2021-08-28] MEDS: PRIMIDONE 50MG TAB PEG SCH ×2 (08:18→21:36)
[2021-08-28] MEDS: ZINC SULFATE 220 MG CAP PEG SCH (08:18)
[2021-08-28] MEDS: predniSONE 10 MG TAB PEG SCH (08:18)
[2021-08-28] MEDS: ASCORBIC ACID 500 MG TAB PEG SCH (08:18)
[2021-08-28] MEDS: SERTRALINE HCL 25 MG TABLET PEG SCH ×2 (08:18→21:36)
[2021-08-28] MEDS: ATORVASTATIN 10 MG TAB PEG SCH (08:18)
[2021-08-28] MEDS: SALIVA SUBSTITUTE(MOUTHKOTE) BTL MT SCH ×4 (08:19→21:34)
[2021-08-28] MEDS: MAGIC MOUTHWASH SUSPENSION BTL SSP SCH ×3 (08:19→17:36)
[2021-08-28] MEDS: FIBER-CON 625 MG TAB PEG SCH (08:20)
[2021-08-28] MEDS: CEFDINIR 300 MG CAP (OMNICEF) PEG SCH (08:20)
[2021-08-28] MEDS: POLYVINYL ALCOHOL OPHTH SOLN 15 ML(LIQUITEARS) OU SCH ×3 (08:20→21:35)
[2021-08-28] MEDS: TRIAMCINOLONE ACET 0.1% CREAM 80 GM TOP SCH ×2 (08:21→21:39)
[2021-08-28] MEDS: OMEPRAZOLE SUSPENSION 20MG 10ML ORAL SYRINGE PEG SCH ×2 (09:00→21:38)
[2021-08-28 13:46] VITALS: BP 124/63
[2021-08-28] MEDS ORDERED: metFORMIN (GLUCOPHAGE) 500MG TAB PO SCH (18:00)
[2021-08-28 20:00] VITALS: BP 147/65
[2021-08-28] MEDS: traZODone 25MG PER 1/2 TABLET PO SCH (21:36)
[2021-08-28] MEDS: OLANZapine 10 MG TAB PEG SCH (21:36)
[2021-08-28] MEDS: GABAPENTIN 100 MG CAP PEG SCH (21:36)
[2021-08-28] MEDS: LOSARTAN 25 MG TAB PEG SCH (21:37)
[2021-08-28] MEDS: traZODone 25MG PER 1/2 TABLET PO PRN (23:27)
[2021-08-29] MEDS: REMEDY PHYTOPLEX Z-GUARD PASTE 113GM TUBE (FROM STOREROOM PRODUCT) TOP SCH ×6 (05:57→23:59)
[2021-08-29] MEDS: PIPERACILLIN/TAZOBACTAM SOD 4.5 GM in D5W MINI-BAG PLUS 50 ML IV SCH ×4 (05:57→23:58)
[2021-08-29 06:31] VITALS: BP 125/58
[2021-08-29] MEDS: COMBIVENT RESPIMAT 100-20MCG INHALER 4GM INH SCH ×4 (07:16→20:00)
[2021-08-29] MEDS: BUDESONIDE 0.25 MG/2 ML INHALATION SUSPENSION INH SCH ×2 (07:18→20:00)
[2021-08-29] MEDS: TIOTROPIUM INHALER/CAPSULE (SPIRIVA) INH SCH (07:18)
[2021-08-29] MEDS: MAGIC MOUTHWASH SUSPENSION BTL SSP SCH ×3 (07:55→16:35)
[2021-08-29] MEDS: ENOXAPARIN 30MG/0.3ML SYRINGE (J1650 PER 10MG) SC SCH ×2 (09:42→21:05)
[2021-08-29] MEDS: LEVEMIR (INSULIN DETEMIR) 1 UNITS/0.01ML SC SCH ×2 (09:43→21:06)
[2021-08-29] MEDS: METAMUCIL (PSYLLIUM) PACKET PEG SCH ×2 (09:43→21:06)
[2021-08-29] MEDS: INSULIN LISPRO (NovoLOG) PER UNIT SC SCH ×4 (09:43→21:07)
[2021-08-29] MEDS: ZINC SULFATE 220 MG CAP PEG SCH (09:43)
[2021-08-29] MEDS: guaiFENesin SYRUP 200MG 10ML UDC PEG SCH ×3 (09:43→21:05)
[2021-08-29] MEDS: PREPARATION H SUPP (HEMORRHOID) PR SCH ×2 (09:43→21:06)
[2021-08-29] MEDS: ASPIRIN 81 MG CHEW TABLET PEG SCH (09:43)
[2021-08-29] MEDS: SERTRALINE HCL 25 MG TABLET PEG SCH ×2 (09:44→21:05)
[2021-08-29] MEDS: ASCORBIC ACID 500 MG TAB PEG SCH (09:44)
[2021-08-29] MEDS: ATENOLOL 12.5MG PER 1/2 TABLET PEG SCH ×2 (09:44→21:04)
[2021-08-29] MEDS: PRIMIDONE 50MG TAB PEG SCH ×2 (09:44→21:05)
[2021-08-29] MEDS: predniSONE 10 MG TAB PEG SCH (09:44)
[2021-08-29] MEDS: FIBER-CON 625 MG TAB PEG SCH (09:44)
[2021-08-29] MEDS: amLODIPine 5 MG TAB PEG SCH (09:44)
[2021-08-29] MEDS: ATORVASTATIN 10 MG TAB PEG SCH (09:44)
[2021-08-29] MEDS: metFORMIN (GLUCOPHAGE) 500MG TAB PO SCH ×2 (09:45→18:25)
[2021-08-29] MEDS: OMEPRAZOLE SUSPENSION 20MG 10ML ORAL SYRINGE PEG SCH ×2 (09:45→21:06)
[2021-08-29] MEDS: SALIVA SUBSTITUTE(MOUTHKOTE) BTL MT SCH ×4 (09:45→21:07)
[2021-08-29] MEDS: POLYVINYL ALCOHOL OPHTH SOLN 15 ML(LIQUITEARS) OU SCH ×3 (09:45→21:07)
[2021-08-29] MEDS: TRIAMCINOLONE ACET 0.1% CREAM 80 GM TOP SCH ×2 (09:46→21:08)
[2021-08-29 16:15] VITALS: BP 132/63
[2021-08-29 20:00] VITALS: BP 124/58
[2021-08-29] MEDS: GABAPENTIN 100 MG CAP PEG SCH (21:04)
[2021-08-29] MEDS: traZODone 25MG PER 1/2 TABLET PO SCH (21:05)
[2021-08-29] MEDS: OLANZapine 10 MG TAB PEG SCH (21:05)
[2021-08-29] MEDS: LOSARTAN 25 MG TAB PEG SCH (21:05)
[2021-08-30] MEDS: REMEDY PHYTOPLEX Z-GUARD PASTE 113GM TUBE (FROM STOREROOM PRODUCT) TOP SCH ×5 (05:32→20:47)
[2021-08-30] MEDS: PIPERACILLIN/TAZOBACTAM SOD 4.5 GM in D5W MINI-BAG PLUS 50 ML IV SCH ×4 (05:32→23:35)
[2021-08-30 06:00] VITALS: BP 106/56
[2021-08-30 07:00] LABS: BASO % 0.5 % (0.0-1.0); EOS # 0.1 10^3/uL (0.0-0.5); EOS % 1.6 % (0.0-3.0); HEMOGLOBIN 10.8 g/dl (13.5-17.5); LYMPH # 1.8 10^3/uL (1.5-5.0); LYMPH % 20.9 % (24.0-44.0); MEAN CORPUSCULAR HEMOGLOBIN 29.9 pg (27.0-33.0); MEAN CORPUSCULAR HGB CONC 31.8 g/dl (32.0-36.5); MEAN CORPUSCULAR VOLUME 94.2 fl (80.0-96.0); MONO # 0.9 10^3/uL (0.0-0.8); MONO % 10.2 % (2.0-8.0); NEUTROPHILS # 5.7 10^3/uL (1.5-8.5); NEUTROPHILS % 64.8 % (36.0-66.0); PLATELET COUNT, AUTOMATED 258 10^3/uL (150-450); RED BLOOD COUNT 3.61 10^6/uL (4.30-6.10); WHITE BLOOD COUNT 8.8 10^3/uL (4.0-10.0)
[2021-08-30] MEDS: TIOTROPIUM INHALER/CAPSULE (SPIRIVA) INH SCH (07:02)
[2021-08-30] MEDS: BUDESONIDE 0.25 MG/2 ML INHALATION SUSPENSION INH SCH ×2 (07:02→19:55)
[2021-08-30] MEDS: COMBIVENT RESPIMAT 100-20MCG INHALER 4GM INH SCH ×4 (07:02→19:55)
[2021-08-30 07:27] LABS: BLOOD UREA NITROGEN 18 MG/DL (7-18); CALCIUM LEVEL 8.6 MG/DL (8.8-10.2); CARBON DIOXIDE LEVEL 35 MEQ/L (21-32); CHLORIDE LEVEL 101 MEQ/L (98-107); CREATININE FOR GFR 0.51 MG/DL (0.70-1.30); GLOMERULAR FILTRATION RATE > 60.0 (>35); GLUCOSE, FASTING 149 MG/DL (70-100); POTASSIUM SERUM 3.9 MEQ/L (3.5-5.1); SODIUM LEVEL 141 MEQ/L (136-145)
[2021-08-30] MEDS: SALIVA SUBSTITUTE(MOUTHKOTE) BTL MT SCH ×4 (08:25→20:46)
[2021-08-30] MEDS: MAGIC MOUTHWASH SUSPENSION BTL SSP SCH ×3 (08:25→18:24)
[2021-08-30] MEDS: POLYVINYL ALCOHOL OPHTH SOLN 15 ML(LIQUITEARS) OU SCH ×3 (08:25→20:46)
[2021-08-30] MEDS: guaiFENesin SYRUP 200MG 10ML UDC PEG SCH ×3 (08:26→20:45)
[2021-08-30] MEDS: metFORMIN (GLUCOPHAGE) 500MG TAB PO SCH ×2 (08:26→18:24)
[2021-08-30] MEDS: INSULIN LISPRO (NovoLOG) PER UNIT SC SCH ×4 (08:26→20:46)
[2021-08-30] MEDS: ASPIRIN 81 MG CHEW TABLET PEG SCH (08:26)
[2021-08-30] MEDS: PREPARATION H SUPP (HEMORRHOID) PR SCH ×2 (08:26→20:45)
[2021-08-30] MEDS: ATENOLOL 12.5MG PER 1/2 TABLET PEG SCH ×2 (08:27→20:45)
[2021-08-30] MEDS: FIBER-CON 625 MG TAB PEG SCH (08:27)
[2021-08-30] MEDS: ATORVASTATIN 10 MG TAB PEG SCH (08:27)
[2021-08-30] MEDS: predniSONE 10 MG TAB PEG SCH (08:27)
[2021-08-30] MEDS: ENOXAPARIN 30MG/0.3ML SYRINGE (J1650 PER 10MG) SC SCH ×2 (08:27→20:45)
[2021-08-30] MEDS: ASCORBIC ACID 500 MG TAB PEG SCH (08:27)
[2021-08-30] MEDS: OMEPRAZOLE SUSPENSION 20MG 10ML ORAL SYRINGE PEG SCH ×2 (08:28→20:45)
[2021-08-30] MEDS: LEVEMIR (INSULIN DETEMIR) 1 UNITS/0.01ML SC SCH ×2 (08:28→20:46)
[2021-08-30] MEDS: ZINC SULFATE 220 MG CAP PEG SCH (08:28)
[2021-08-30] MEDS: METAMUCIL (PSYLLIUM) PACKET PEG SCH ×2 (08:28→20:45)
[2021-08-30] MEDS: PRIMIDONE 50MG TAB PEG SCH ×2 (08:28→20:46)
[2021-08-30] MEDS: amLODIPine 5 MG TAB PEG SCH (08:28)
[2021-08-30] MEDS: SERTRALINE HCL 25 MG TABLET PEG SCH ×2 (08:28→20:45)
[2021-08-30] MEDS: TRIAMCINOLONE ACET 0.1% CREAM 80 GM TOP SCH ×2 (08:29→20:47)
[2021-08-30 14:00] VITALS: BP 119/57
[2021-08-30 19:27] VITALS: BP 128/66
[2021-08-30 20:34] VITALS: BP 127/59
[2021-08-30] MEDS: GABAPENTIN 100 MG CAP PEG SCH (20:45)
[2021-08-30] MEDS: OLANZapine 10 MG TAB PEG SCH (20:46)
[2021-08-30] MEDS: LOSARTAN 25 MG TAB PEG SCH (20:46)
[2021-08-30] MEDS: traZODone 25MG PER 1/2 TABLET PO SCH (20:46)
[2021-08-31] MEDS: REMEDY PHYTOPLEX Z-GUARD PASTE 113GM TUBE (FROM STOREROOM PRODUCT) TOP SCH ×6 (00:10→21:07)
[2021-08-31] MEDS: PIPERACILLIN/TAZOBACTAM SOD 4.5 GM in D5W MINI-BAG PLUS 50 ML IV SCH ×4 (05:31→23:42)
[2021-08-31 06:00] VITALS: BP 133/63
[2021-08-31 06:46] LABS: BASO % 0.3 % (0.0-1.0); EOS # 0.1 10^3/uL (0.0-0.5); HEMATOCRIT 33.6 % (42.0-52.0); HEMOGLOBIN 10.7 g/dl (13.5-17.5); LYMPH # 2.1 10^3/uL (1.5-5.0); MEAN CORPUSCULAR HEMOGLOBIN 30.1 pg (27.0-33.0); MEAN CORPUSCULAR HGB CONC 31.8 g/dl (32.0-36.5); MEAN CORPUSCULAR VOLUME 94.6 fl (80.0-96.0); MONO # 0.8 10^3/uL (0.0-0.8); MONO % 9.1 % (2.0-8.0); NEUTROPHILS # 5.6 10^3/uL (1.5-8.5); NEUTROPHILS % 63.4 % (36.0-66.0); PLATELET COUNT, AUTOMATED 257 10^3/uL (150-450); RED BLOOD COUNT 3.55 10^6/uL (4.30-6.10); WHITE BLOOD COUNT 8.8 10^3/uL (4.0-10.0)
[2021-08-31] MEDS: COMBIVENT RESPIMAT 100-20MCG INHALER 4GM INH SCH ×4 (07:12→20:19)
[2021-08-31] MEDS: TIOTROPIUM INHALER/CAPSULE (SPIRIVA) INH SCH (07:12)
[2021-08-31] MEDS: BUDESONIDE 0.25 MG/2 ML INHALATION SUSPENSION INH SCH ×2 (07:12→20:20)
[2021-08-31] MEDS: INSULIN LISPRO (NovoLOG) PER UNIT SC SCH ×4 (08:41→21:08)
[2021-08-31] MEDS: MAGIC MOUTHWASH SUSPENSION BTL SSP SCH ×3 (08:41→17:46)
[2021-08-31] MEDS: LEVEMIR (INSULIN DETEMIR) 1 UNITS/0.01ML SC SCH ×2 (08:42→21:06)
[2021-08-31] MEDS: ENOXAPARIN 30MG/0.3ML SYRINGE (J1650 PER 10MG) SC SCH ×2 (08:42→21:06)
[2021-08-31] MEDS: POLYVINYL ALCOHOL OPHTH SOLN 15 ML(LIQUITEARS) OU SCH ×3 (08:42→21:07)
[2021-08-31] MEDS: guaiFENesin SYRUP 200MG 10ML UDC PEG SCH ×3 (08:43→21:06)
[2021-08-31] MEDS: ZINC SULFATE 220 MG CAP PEG SCH (08:43)
[2021-08-31] MEDS: metFORMIN (GLUCOPHAGE) 500MG TAB PO SCH ×2 (08:43→17:45)
[2021-08-31] MEDS: METAMUCIL (PSYLLIUM) PACKET PEG SCH ×2 (08:43→21:06)
[2021-08-31] MEDS: ASPIRIN 81 MG CHEW TABLET PEG SCH (08:43)
[2021-08-31] MEDS: ASCORBIC ACID 500 MG TAB PEG SCH (08:43)
[2021-08-31] MEDS: ATORVASTATIN 10 MG TAB PEG SCH (08:43)
[2021-08-31] MEDS: PRIMIDONE 50MG TAB PEG SCH ×2 (08:43→21:07)
[2021-08-31] MEDS: PREPARATION H SUPP (HEMORRHOID) PR SCH ×2 (08:44→21:07)
[2021-08-31] MEDS: predniSONE 10 MG TAB PEG SCH (08:44)
[2021-08-31] MEDS: amLODIPine 5 MG TAB PEG SCH (08:44)
[2021-08-31] MEDS: TRIAMCINOLONE ACET 0.1% CREAM 80 GM TOP SCH ×2 (08:44→21:08)
[2021-08-31] MEDS: SERTRALINE HCL 25 MG TABLET PEG SCH ×2 (08:44→21:07)
[2021-08-31] MEDS: FIBER-CON 625 MG TAB PEG SCH (08:44)
[2021-08-31] MEDS: OMEPRAZOLE SUSPENSION 20MG 10ML ORAL SYRINGE PEG SCH ×2 (08:45→21:06)
[2021-08-31] MEDS: SALIVA SUBSTITUTE(MOUTHKOTE) BTL MT SCH ×4 (08:45→21:07)
[2021-08-31] MEDS: ATENOLOL 12.5MG PER 1/2 TABLET PEG SCH ×2 (08:45→21:09)
[2021-08-31 14:00] VITALS: BP 161/69
[2021-08-31 20:00] VITALS: BP 127/63
[2021-08-31] MEDS: OLANZapine 10 MG TAB PEG SCH (21:06)
[2021-08-31] MEDS: LOSARTAN 25 MG TAB PEG SCH (21:07)
[2021-08-31] MEDS: traZODone 25MG PER 1/2 TABLET PO SCH (21:07)
[2021-08-31] MEDS: GABAPENTIN 100 MG CAP PEG SCH (21:07)
[2021-09-01] MEDS: REMEDY PHYTOPLEX Z-GUARD PASTE 113GM TUBE (FROM STOREROOM PRODUCT) TOP SCH ×7 (00:28→23:21)
[2021-09-01] MEDS: PIPERACILLIN/TAZOBACTAM SOD 4.5 GM in D5W MINI-BAG PLUS 50 ML IV SCH ×4 (05:14→23:20)
[2021-09-01 05:58] VITALS: BP 155/84
[2021-09-01] MEDS: COMBIVENT RESPIMAT 100-20MCG INHALER 4GM INH SCH ×3 (07:17→20:54)
[2021-09-01] MEDS: BUDESONIDE 0.25 MG/2 ML INHALATION SUSPENSION INH SCH ×2 (07:17→20:54)
[2021-09-01] MEDS: TIOTROPIUM INHALER/CAPSULE (SPIRIVA) INH SCH (07:17)
[2021-09-01] MEDS: MAGIC MOUTHWASH SUSPENSION BTL SSP SCH ×3 (08:26→16:49)
[2021-09-01] MEDS: metFORMIN (GLUCOPHAGE) 500MG TAB PO SCH ×2 (08:45→17:03)
[2021-09-01] MEDS: INSULIN LISPRO (NovoLOG) PER UNIT SC SCH ×4 (08:45→20:06)
[2021-09-01] MEDS: FIBER-CON 625 MG TAB PEG SCH (10:02)
[2021-09-01] MEDS: ASPIRIN 81 MG CHEW TABLET PEG SCH (10:02)
[2021-09-01] MEDS: ZINC SULFATE 220 MG CAP PEG SCH (10:02)
[2021-09-01] MEDS: ASCORBIC ACID 500 MG TAB PEG SCH (10:02)
[2021-09-01] MEDS: predniSONE 10 MG TAB PEG SCH (10:03)
[2021-09-01] MEDS: ATENOLOL 12.5MG PER 1/2 TABLET PEG SCH ×2 (10:03→20:11)
[2021-09-01] MEDS: PRIMIDONE 50MG TAB PEG SCH ×2 (10:03→20:05)
[2021-09-01] MEDS: amLODIPine 5 MG TAB PEG SCH (10:03)
[2021-09-01] MEDS: SERTRALINE HCL 25 MG TABLET PEG SCH ×2 (10:03→20:05)
[2021-09-01] MEDS: METAMUCIL (PSYLLIUM) PACKET PEG SCH ×2 (10:03→20:06)
[2021-09-01] MEDS: OMEPRAZOLE SUSPENSION 20MG 10ML ORAL SYRINGE PEG SCH ×2 (10:03→20:05)
[2021-09-01] MEDS: guaiFENesin SYRUP 200MG 10ML UDC PEG SCH ×3 (10:04→20:05)
[2021-09-01] MEDS: LEVEMIR (INSULIN DETEMIR) 1 UNITS/0.01ML SC SCH ×2 (10:04→20:06)
[2021-09-01] MEDS: ENOXAPARIN 30MG/0.3ML SYRINGE (J1650 PER 10MG) SC SCH ×2 (10:04→20:05)
[2021-09-01] MEDS: PREPARATION H SUPP (HEMORRHOID) PR SCH ×2 (10:04→20:05)
[2021-09-01] MEDS: ATORVASTATIN 10 MG TAB PEG SCH (10:04)
[2021-09-01] MEDS: SALIVA SUBSTITUTE(MOUTHKOTE) BTL MT SCH ×4 (10:05→20:09)
[2021-09-01] MEDS: TRIAMCINOLONE ACET 0.1% CREAM 80 GM TOP SCH ×2 (10:06→20:12)
[2021-09-01] MEDS: POLYVINYL ALCOHOL OPHTH SOLN 15 ML(LIQUITEARS) OU SCH ×3 (10:06→20:12)
[2021-09-01 13:46] VITALS: BP 135/66
[2021-09-01 20:00] VITALS: BP 124/68
[2021-09-01] MEDS: OLANZapine 10 MG TAB PEG SCH (20:05)
[2021-09-01] MEDS: GABAPENTIN 100 MG CAP PEG SCH (20:05)
[2021-09-01] MEDS: traZODone 25MG PER 1/2 TABLET PO SCH (20:05)
[2021-09-01] MEDS: LOSARTAN 25 MG TAB PEG SCH (20:11)
[2021-09-02] MEDS: REMEDY PHYTOPLEX Z-GUARD PASTE 113GM TUBE (FROM STOREROOM PRODUCT) TOP SCH ×5 (05:41→20:37)
[2021-09-02] MEDS: PIPERACILLIN/TAZOBACTAM SOD 4.5 GM in D5W MINI-BAG PLUS 50 ML IV SCH ×3 (05:41→17:28)
[2021-09-02 06:00] VITALS: BP 137/76
[2021-09-02 06:48] LABS: BASO % 0.4 % (0.0-1.0); EOS # 0.1 10^3/uL (0.0-0.5); HEMOGLOBIN 11.1 g/dl (13.5-17.5); LYMPH # 2.4 10^3/uL (1.5-5.0); LYMPH % 21.2 % (24.0-44.0); MEAN CORPUSCULAR HEMOGLOBIN 29.8 pg (27.0-33.0); MEAN CORPUSCULAR HGB CONC 30.8 g/dl (32.0-36.5); MEAN CORPUSCULAR VOLUME 96.5 fl (80.0-96.0); MONO # 0.9 10^3/uL (0.0-0.8); MONO % 7.7 % (2.0-8.0); NEUTROPHILS # 7.7 10^3/uL (1.5-8.5); NEUTROPHILS % 68.3 % (36.0-66.0); PLATELET COUNT, AUTOMATED 278 10^3/uL (150-450); RED BLOOD COUNT 3.73 10^6/uL (4.30-6.10); WHITE BLOOD COUNT 11.3 10^3/uL (4.0-10.0)
[2021-09-02 07:07] LABS: BLOOD UREA NITROGEN 22 MG/DL (7-18); CALCIUM LEVEL 8.7 MG/DL (8.8-10.2); CARBON DIOXIDE LEVEL 35 MEQ/L (21-32); CHLORIDE LEVEL 101 MEQ/L (98-107); CREATININE FOR GFR 0.51 MG/DL (0.70-1.30); GLOMERULAR FILTRATION RATE > 60.0 (>35); GLUCOSE, FASTING 162 MG/DL (70-100); POTASSIUM SERUM 4.1 MEQ/L (3.5-5.1); SODIUM LEVEL 139 MEQ/L (136-145)
[2021-09-02] MEDS: TIOTROPIUM INHALER/CAPSULE (SPIRIVA) INH SCH (07:52)
[2021-09-02] MEDS: COMBIVENT RESPIMAT 100-20MCG INHALER 4GM INH SCH ×4 (07:52→20:43)
[2021-09-02] MEDS: BUDESONIDE 0.25 MG/2 ML INHALATION SUSPENSION INH SCH ×2 (07:52→20:43)
[2021-09-02] MEDS: PREPARATION H SUPP (HEMORRHOID) PR SCH ×2 (09:53→20:36)
[2021-09-02] MEDS: METAMUCIL (PSYLLIUM) PACKET PEG SCH ×2 (09:53→20:35)
[2021-09-02] MEDS: OMEPRAZOLE SUSPENSION 20MG 10ML ORAL SYRINGE PEG SCH ×2 (09:53→20:36)
[2021-09-02] MEDS: guaiFENesin SYRUP 200MG 10ML UDC PEG SCH ×3 (09:53→20:36)
[2021-09-02] MEDS: ENOXAPARIN 30MG/0.3ML SYRINGE (J1650 PER 10MG) SC SCH ×2 (09:53→20:36)
[2021-09-02] MEDS: ZINC SULFATE 220 MG CAP PEG SCH (09:54)
[2021-09-02] MEDS: SERTRALINE HCL 25 MG TABLET PEG SCH ×2 (09:54→20:35)
[2021-09-02] MEDS: PRIMIDONE 50MG TAB PEG SCH ×2 (09:54→20:35)
[2021-09-02] MEDS: metFORMIN (GLUCOPHAGE) 500MG TAB PO SCH ×2 (09:54→17:29)
[2021-09-02] MEDS: ASCORBIC ACID 500 MG TAB PEG SCH (09:54)
[2021-09-02] MEDS: FIBER-CON 625 MG TAB PEG SCH (09:54)
[2021-09-02] MEDS: ASPIRIN 81 MG CHEW TABLET PEG SCH (09:54)
[2021-09-02] MEDS: ATORVASTATIN 10 MG TAB PEG SCH (09:54)
[2021-09-02] MEDS: predniSONE 10 MG TAB PEG SCH (09:55)
[2021-09-02] MEDS: ATENOLOL 12.5MG PER 1/2 TABLET PEG SCH ×2 (09:55→20:35)
[2021-09-02] MEDS: amLODIPine 5 MG TAB PEG SCH (09:55)
[2021-09-02] MEDS: SALIVA SUBSTITUTE(MOUTHKOTE) BTL MT SCH ×4 (09:56→20:36)
[2021-09-02] MEDS: INSULIN LISPRO (NovoLOG) PER UNIT SC SCH ×4 (09:56→20:34)
[2021-09-02] MEDS: LEVEMIR (INSULIN DETEMIR) 1 UNITS/0.01ML SC SCH ×2 (09:56→20:34)
[2021-09-02] MEDS: MAGIC MOUTHWASH SUSPENSION BTL SSP SCH ×3 (09:56→16:22)
[2021-09-02] MEDS: POLYVINYL ALCOHOL OPHTH SOLN 15 ML(LIQUITEARS) OU SCH ×3 (09:57→20:36)
[2021-09-02] MEDS: TRIAMCINOLONE ACET 0.1% CREAM 80 GM TOP SCH ×2 (09:57→20:37)
[2021-09-02 14:00] VITALS: BP 105/55
[2021-09-02 20:00] VITALS: BP 121/62
[2021-09-02] MEDS: OLANZapine 10 MG TAB PEG SCH (20:34)
[2021-09-02] MEDS: GABAPENTIN 100 MG CAP PEG SCH (20:35)
[2021-09-02] MEDS: traZODone 25MG PER 1/2 TABLET PO SCH (20:35)
[2021-09-02] MEDS: LOSARTAN 25 MG TAB PEG SCH (20:35)
[2021-09-03] MEDS: REMEDY PHYTOPLEX Z-GUARD PASTE 113GM TUBE (FROM STOREROOM PRODUCT) TOP SCH ×6 (01:15→21:14)
[2021-09-03 06:00] VITALS: BP 139/66
[2021-09-03] MEDS: COMBIVENT RESPIMAT 100-20MCG INHALER 4GM INH SCH ×4 (08:15→21:03)
[2021-09-03] MEDS: BUDESONIDE 0.25 MG/2 ML INHALATION SUSPENSION INH SCH ×2 (08:15→21:02)
[2021-09-03] MEDS: TIOTROPIUM INHALER/CAPSULE (SPIRIVA) INH SCH (08:16)
[2021-09-03] MEDS: INSULIN LISPRO (NovoLOG) PER UNIT SC SCH ×4 (08:29→21:00)
[2021-09-03] MEDS: LEVEMIR (INSULIN DETEMIR) 1 UNITS/0.01ML SC SCH ×2 (08:29→21:12)
[2021-09-03] MEDS: SALIVA SUBSTITUTE(MOUTHKOTE) BTL MT SCH ×4 (08:30→21:13)
[2021-09-03] MEDS: MAGIC MOUTHWASH SUSPENSION BTL SSP SCH ×3 (08:30→17:20)
[2021-09-03] MEDS: POLYVINYL ALCOHOL OPHTH SOLN 15 ML(LIQUITEARS) OU SCH ×3 (08:30→21:13)
[2021-09-03] MEDS: TRIAMCINOLONE ACET 0.1% CREAM 80 GM TOP SCH ×2 (08:31→21:13)
[2021-09-03] MEDS: guaiFENesin SYRUP 200MG 10ML UDC PEG SCH ×3 (08:56→21:13)
[2021-09-03] MEDS: OMEPRAZOLE SUSPENSION 20MG 10ML ORAL SYRINGE PEG SCH ×2 (08:56→21:12)
[2021-09-03] MEDS: ENOXAPARIN 30MG/0.3ML SYRINGE (J1650 PER 10MG) SC SCH ×2 (08:56→21:12)
[2021-09-03] MEDS: ASCORBIC ACID 500 MG TAB PEG SCH (08:57)
[2021-09-03] MEDS: ZINC SULFATE 220 MG CAP PEG SCH (08:57)
[2021-09-03] MEDS: metFORMIN (GLUCOPHAGE) 500MG TAB PO SCH ×2 (08:57→18:07)
[2021-09-03] MEDS: predniSONE 10 MG TAB PEG SCH (08:57)
[2021-09-03] MEDS: FIBER-CON 625 MG TAB PEG SCH (08:57)
[2021-09-03] MEDS: ATORVASTATIN 10 MG TAB PEG SCH (08:57)
[2021-09-03] MEDS: ASPIRIN 81 MG CHEW TABLET PEG SCH (08:57)
[2021-09-03] MEDS: PRIMIDONE 50MG TAB PEG SCH ×2 (08:57→21:11)
[2021-09-03] MEDS: SERTRALINE HCL 25 MG TABLET PEG SCH ×2 (08:57→21:13)
[2021-09-03] MEDS: PREPARATION H SUPP (HEMORRHOID) PR SCH ×2 (08:57→21:11)
[2021-09-03] MEDS: METAMUCIL (PSYLLIUM) PACKET PEG SCH ×2 (08:58→21:13)
[2021-09-03] MEDS: ATENOLOL 12.5MG PER 1/2 TABLET PEG SCH ×2 (08:58→21:11)
[2021-09-03] MEDS: amLODIPine 5 MG TAB PEG SCH (08:58)
[2021-09-03 12:17] LABS: BASO % 0.2 % (0.0-1.0); EOS # 0.1 10^3/uL (0.0-0.5); EOS % 0.5 % (0.0-3.0); HEMATOCRIT 37.4 % (42.0-52.0); HEMOGLOBIN 11.6 g/dl (13.5-17.5); LYMPH # 2.6 10^3/uL (1.5-5.0); LYMPH % 18.8 % (24.0-44.0); MEAN CORPUSCULAR HEMOGLOBIN 29.9 pg (27.0-33.0); MEAN CORPUSCULAR VOLUME 96.4 fl (80.0-96.0); MONO # 0.8 10^3/uL (0.0-0.8); NEUTROPHILS # 10.2 10^3/uL (1.5-8.5); NEUTROPHILS % 73.3 % (36.0-66.0); PLATELET COUNT, AUTOMATED 292 10^3/uL (150-450); RED BLOOD COUNT 3.88 10^6/uL (4.30-6.10); WHITE BLOOD COUNT 13.9 10^3/uL (4.0-10.0)
[2021-09-03 12:37] LABS: BLOOD UREA NITROGEN 18 MG/DL (7-18); CARBON DIOXIDE LEVEL 35 MEQ/L (21-32); CHLORIDE LEVEL 101 MEQ/L (98-107); CREATININE FOR GFR 0.55 MG/DL (0.70-1.30); GLOMERULAR FILTRATION RATE > 60.0 (>35); GLUCOSE, FASTING 220 MG/DL (70-100); POTASSIUM SERUM 4.5 MEQ/L (3.5-5.1); SODIUM LEVEL 139 MEQ/L (136-145)
[2021-09-03 14:00] VITALS: BP 146/69
[2021-09-03] MEDS: LIDOCAINE 5% (LIDODERM) PATCH TD SCH (15:30)
[2021-09-03 20:00] VITALS: BP 124/63
[2021-09-03] MEDS: GABAPENTIN 100 MG CAP PEG SCH (21:10)
[2021-09-03] MEDS: traZODone 25MG PER 1/2 TABLET PO SCH (21:11)
[2021-09-03] MEDS: LOSARTAN 25 MG TAB PEG SCH (21:11)
[2021-09-03] MEDS: OLANZapine 10 MG TAB PEG SCH (21:11)
[2021-09-03] MEDS: **NOTE PATIENT COMMENT** MISC XX SCH (21:15)
[2021-09-04] MEDS: REMEDY PHYTOPLEX Z-GUARD PASTE 113GM TUBE (FROM STOREROOM PRODUCT) TOP SCH ×6 (01:12→20:25)
[2021-09-04 06:00] VITALS: BP 118/63
[2021-09-04 07:01] LABS: BASO % 0.3 % (0.0-1.0); EOS # 0.1 10^3/uL (0.0-0.5); EOS % 0.6 % (0.0-3.0); HEMATOCRIT 32.6 % (42.0-52.0); HEMOGLOBIN 10.5 g/dl (13.5-17.5); LYMPH # 2.5 10^3/uL (1.5-5.0); LYMPH % 23.4 % (24.0-44.0); MEAN CORPUSCULAR HEMOGLOBIN 31.2 pg (27.0-33.0); MEAN CORPUSCULAR HGB CONC 32.2 g/dl (32.0-36.5); MEAN CORPUSCULAR VOLUME 96.7 fl (80.0-96.0); MONO # 0.9 10^3/uL (0.0-0.8); MONO % 8.6 % (2.0-8.0); NEUTROPHILS # 7.1 10^3/uL (1.5-8.5); NEUTROPHILS % 65.8 % (36.0-66.0); PLATELET COUNT, AUTOMATED 272 10^3/uL (150-450); RED BLOOD COUNT 3.37 10^6/uL (4.30-6.10); WHITE BLOOD COUNT 10.8 10^3/uL (4.0-10.0)
[2021-09-04 07:30] LABS: BLOOD UREA NITROGEN 18 MG/DL (7-18); CALCIUM LEVEL 8.3 MG/DL (8.8-10.2); CARBON DIOXIDE LEVEL 36 MEQ/L (21-32); CHLORIDE LEVEL 100 MEQ/L (98-107); CREATININE FOR GFR 0.47 MG/DL (0.70-1.30); GLOMERULAR FILTRATION RATE > 60.0 (>35); GLUCOSE, FASTING 126 MG/DL (70-100); POTASSIUM SERUM 4.1 MEQ/L (3.5-5.1); SODIUM LEVEL 137 MEQ/L (136-145)
[2021-09-04] MEDS: PREPARATION H SUPP (HEMORRHOID) PR SCH ×2 (07:55→20:22)
[2021-09-04] MEDS: MAGIC MOUTHWASH SUSPENSION BTL SSP SCH ×3 (07:55→17:10)
[2021-09-04] MEDS: LEVEMIR (INSULIN DETEMIR) 1 UNITS/0.01ML SC SCH ×2 (07:55→20:23)
[2021-09-04] MEDS: INSULIN LISPRO (NovoLOG) PER UNIT SC SCH ×4 (07:56→20:26)
[2021-09-04] MEDS: ASPIRIN 81 MG CHEW TABLET PEG SCH (07:56)
[2021-09-04] MEDS: ZINC SULFATE 220 MG CAP PEG SCH (07:56)
[2021-09-04] MEDS: ATENOLOL 12.5MG PER 1/2 TABLET PEG SCH ×2 (07:56→20:23)
[2021-09-04] MEDS: guaiFENesin SYRUP 200MG 10ML UDC PEG SCH ×3 (07:56→20:23)
[2021-09-04] MEDS: metFORMIN (GLUCOPHAGE) 500MG TAB PO SCH ×2 (07:57→17:09)
[2021-09-04] MEDS: SERTRALINE HCL 25 MG TABLET PEG SCH ×2 (07:57→20:22)
[2021-09-04] MEDS: PRIMIDONE 50MG TAB PEG SCH ×2 (07:57→20:22)
[2021-09-04] MEDS: ATORVASTATIN 10 MG TAB PEG SCH (07:57)
[2021-09-04] MEDS: ASCORBIC ACID 500 MG TAB PEG SCH (07:57)
[2021-09-04] MEDS: predniSONE 10 MG TAB PEG SCH (07:57)
[2021-09-04] MEDS: ENOXAPARIN 30MG/0.3ML SYRINGE (J1650 PER 10MG) SC SCH ×2 (07:58→20:24)
[2021-09-04] MEDS: FIBER-CON 625 MG TAB PEG SCH (07:58)
[2021-09-04] MEDS: amLODIPine 5 MG TAB PEG SCH (07:58)
[2021-09-04] MEDS: METAMUCIL (PSYLLIUM) PACKET PEG SCH ×2 (07:58→20:26)
[2021-09-04] MEDS: OMEPRAZOLE SUSPENSION 20MG 10ML ORAL SYRINGE PEG SCH ×2 (07:58→20:26)
[2021-09-04] MEDS: POLYVINYL ALCOHOL OPHTH SOLN 15 ML(LIQUITEARS) OU SCH ×3 (07:59→20:24)
[2021-09-04] MEDS: LIDOCAINE 5% (LIDODERM) PATCH TD SCH (07:59)
[2021-09-04] MEDS: TRIAMCINOLONE ACET 0.1% CREAM 80 GM TOP SCH ×2 (07:59→20:24)
[2021-09-04] MEDS: SALIVA SUBSTITUTE(MOUTHKOTE) BTL MT SCH ×4 (07:59→20:26)
[2021-09-04] MEDS: BUDESONIDE 0.25 MG/2 ML INHALATION SUSPENSION INH SCH ×2 (08:21→20:00)
[2021-09-04] MEDS: TIOTROPIUM INHALER/CAPSULE (SPIRIVA) INH SCH (08:21)
[2021-09-04] MEDS: COMBIVENT RESPIMAT 100-20MCG INHALER 4GM INH SCH ×4 (08:21→20:04)
[2021-09-04 14:00] VITALS: BP 130/63
[2021-09-04 19:37] VITALS: BP 128/61
[2021-09-04] MEDS: LOSARTAN 25 MG TAB PEG SCH (20:22)
[2021-09-04] MEDS: OLANZapine 10 MG TAB PEG SCH (20:22)
[2021-09-04] MEDS: GABAPENTIN 100 MG CAP PEG SCH (20:23)
[2021-09-04] MEDS: traZODone 25MG PER 1/2 TABLET PO SCH (20:23)
[2021-09-04] MEDS: VANICREAM MOISTURIZING SKIN CREAM 113GM TUBE TOP SCH (20:25)
[2021-09-04] MEDS: **NOTE PATIENT COMMENT** MISC XX SCH (20:25)
[2021-09-05] MEDS: REMEDY PHYTOPLEX Z-GUARD PASTE 113GM TUBE (FROM STOREROOM PRODUCT) TOP SCH ×7 (01:29→21:41)
[2021-09-05 05:21] VITALS: BP 156/70
[2021-09-05] MEDS: COMBIVENT RESPIMAT 100-20MCG INHALER 4GM INH SCH ×4 (05:37→20:00)
[2021-09-05] MEDS: TIOTROPIUM INHALER/CAPSULE (SPIRIVA) INH SCH (05:39)
[2021-09-05] MEDS: BUDESONIDE 0.25 MG/2 ML INHALATION SUSPENSION INH SCH ×2 (05:39→20:00)
[2021-09-05] MEDS: MAGIC MOUTHWASH SUSPENSION BTL SSP SCH ×3 (07:51→17:19)
[2021-09-05] MEDS: FIBER-CON 625 MG TAB PEG SCH (07:53)
[2021-09-05] MEDS: amLODIPine 5 MG TAB PEG SCH (07:53)
[2021-09-05] MEDS: metFORMIN (GLUCOPHAGE) 500MG TAB PO SCH ×2 (07:54→17:19)
[2021-09-05] MEDS: INSULIN LISPRO (NovoLOG) PER UNIT SC SCH ×4 (07:54→21:00)
[2021-09-05] MEDS: ATORVASTATIN 10 MG TAB PEG SCH (07:54)
[2021-09-05] MEDS: LEVEMIR (INSULIN DETEMIR) 1 UNITS/0.01ML SC SCH ×2 (07:54→21:47)
[2021-09-05] MEDS: predniSONE 10 MG TAB PEG SCH (07:55)
[2021-09-05] MEDS: ZINC SULFATE 220 MG CAP PEG SCH (07:55)
[2021-09-05] MEDS: guaiFENesin SYRUP 200MG 10ML UDC PEG SCH ×3 (07:55→21:41)
[2021-09-05] MEDS: ASPIRIN 81 MG CHEW TABLET PEG SCH (07:55)
[2021-09-05] MEDS: ATENOLOL 12.5MG PER 1/2 TABLET PEG SCH ×2 (07:55→21:42)
[2021-09-05] MEDS: PRIMIDONE 50MG TAB PEG SCH ×2 (07:55→21:41)
[2021-09-05] MEDS: ENOXAPARIN 30MG/0.3ML SYRINGE (J1650 PER 10MG) SC SCH ×2 (07:56→21:40)
[2021-09-05] MEDS: ASCORBIC ACID 500 MG TAB PEG SCH (07:56)
[2021-09-05] MEDS: PREPARATION H SUPP (HEMORRHOID) PR SCH ×2 (07:56→21:40)
[2021-09-05] MEDS: POLYVINYL ALCOHOL OPHTH SOLN 15 ML(LIQUITEARS) OU SCH ×3 (07:56→21:00)
[2021-09-05] MEDS: SERTRALINE HCL 25 MG TABLET PEG SCH ×2 (07:56→21:46)
[2021-09-05] MEDS: METAMUCIL (PSYLLIUM) PACKET PEG SCH ×2 (07:56→21:41)
[2021-09-05] MEDS: OMEPRAZOLE SUSPENSION 20MG 10ML ORAL SYRINGE PEG SCH ×2 (07:56→21:42)
[2021-09-05] MEDS: LIDOCAINE 5% (LIDODERM) PATCH TD SCH (07:57)
[2021-09-05] MEDS: TRIAMCINOLONE ACET 0.1% CREAM 80 GM TOP SCH ×2 (07:57→20:59)
[2021-09-05] MEDS: SALIVA SUBSTITUTE(MOUTHKOTE) BTL MT SCH ×4 (07:57→20:59)
[2021-09-05] MEDS: VANICREAM MOISTURIZING SKIN CREAM 113GM TUBE TOP SCH ×2 (07:58→21:02)
[2021-09-05] MEDS ORDERED: TOBRAMYCIN INHAL 300 MG/5 ML SOLN INH SCH (08:00)
[2021-09-05 11:34] LABS: BASO % 0.3 % (0.0-1.0); EOS # 0.1 10^3/uL (0.0-0.5); EOS % 0.4 % (0.0-3.0); HEMATOCRIT 34.1 % (42.0-52.0); HEMOGLOBIN 10.9 g/dl (13.5-17.5); LYMPH # 2.5 10^3/uL (1.5-5.0); LYMPH % 18.1 % (24.0-44.0); MEAN CORPUSCULAR HEMOGLOBIN 31.1 pg (27.0-33.0); MEAN CORPUSCULAR VOLUME 97.2 fl (80.0-96.0); MONO # 1.1 10^3/uL (0.0-0.8); MONO % 8.2 % (2.0-8.0); NEUTROPHILS # 9.9 10^3/uL (1.5-8.5); NEUTROPHILS % 72.1 % (36.0-66.0); PLATELET COUNT, AUTOMATED 267 10^3/uL (150-450); RED BLOOD COUNT 3.51 10^6/uL (4.30-6.10); WHITE BLOOD COUNT 13.8 10^3/uL (4.0-10.0)
[2021-09-05 14:00] VITALS: BP 140/73
[2021-09-05] MEDS: TOBRAMYCIN INHAL 300 MG/5 ML SOLN INH SCH ×2 (15:12→21:03)
[2021-09-05 19:55] VITALS: BP 147/74
[2021-09-05] MEDS: **NOTE PATIENT COMMENT** MISC XX SCH (21:40)
[2021-09-05] MEDS: LOSARTAN 25 MG TAB PEG SCH (21:41)
[2021-09-05] MEDS: GABAPENTIN 100 MG CAP PEG SCH (21:41)
[2021-09-05] MEDS: traZODone 25MG PER 1/2 TABLET PO SCH (21:42)
[2021-09-05] MEDS: OLANZapine 10 MG TAB PEG SCH (21:42)
[2021-09-06] MEDS: REMEDY PHYTOPLEX Z-GUARD PASTE 113GM TUBE (FROM STOREROOM PRODUCT) TOP SCH ×5 (04:17→21:12)
[2021-09-06 05:13] VITALS: BP 143/65
[2021-09-06 06:49] LABS: BASO % 0.3 % (0.0-1.0); EOS # 0.1 10^3/uL (0.0-0.5); EOS % 0.9 % (0.0-3.0); HEMATOCRIT 35.9 % (42.0-52.0); HEMOGLOBIN 11.2 g/dl (13.5-17.5); LYMPH # 2.5 10^3/uL (1.5-5.0); LYMPH % 23.8 % (24.0-44.0); MEAN CORPUSCULAR HEMOGLOBIN 29.9 pg (27.0-33.0); MEAN CORPUSCULAR HGB CONC 31.2 g/dl (32.0-36.5); MONO # 0.9 10^3/uL (0.0-0.8); MONO % 8.3 % (2.0-8.0); PLATELET COUNT, AUTOMATED 273 10^3/uL (150-450); RED BLOOD COUNT 3.74 10^6/uL (4.30-6.10); WHITE BLOOD COUNT 10.6 10^3/uL (4.0-10.0)
[2021-09-06 07:20] LABS: BLOOD UREA NITROGEN 19 MG/DL (7-18); CALCIUM LEVEL 9.4 MG/DL (8.8-10.2); CARBON DIOXIDE LEVEL 36 MEQ/L (21-32); CHLORIDE LEVEL 100 MEQ/L (98-107); CREATININE FOR GFR 0.43 MG/DL (0.70-1.30); GLOMERULAR FILTRATION RATE > 60.0 (>35); GLUCOSE, FASTING 137 MG/DL (70-100); POTASSIUM SERUM 3.8 MEQ/L (3.5-5.1); SODIUM LEVEL 139 MEQ/L (136-145)
[2021-09-06] MEDS: COMBIVENT RESPIMAT 100-20MCG INHALER 4GM INH SCH ×4 (07:20→19:43)
[2021-09-06] MEDS: TIOTROPIUM INHALER/CAPSULE (SPIRIVA) INH SCH (07:20)
[2021-09-06] MEDS: BUDESONIDE 0.25 MG/2 ML INHALATION SUSPENSION INH SCH ×2 (07:20→19:43)
[2021-09-06] MEDS: TOBRAMYCIN INHAL 300 MG/5 ML SOLN INH SCH ×2 (08:00→19:43)
[2021-09-06] MEDS ORDERED: BARIUM SULFATE 700 MG TABLET (E-Z-DISK) As Ordered ONE (08:29)
[2021-09-06] MEDS ORDERED: E-Z-PAQUE 96% w/w SUSP 176GM BTL As Ordered ONE (08:29)
[2021-09-06] MEDS ORDERED: VARIBAR NECTAR 40% w/v 240ML SUSP BTL As Ordered ONE (08:29)
[2021-09-06] MEDS ORDERED: VARIBAR PUDDING 40% w/v 230ML TUBE As Ordered ONE (08:29)
[2021-09-06] MEDS: SALIVA SUBSTITUTE(MOUTHKOTE) BTL MT SCH ×4 (09:49→21:12)
[2021-09-06] MEDS: MAGIC MOUTHWASH SUSPENSION BTL SSP SCH ×3 (09:49→18:03)
[2021-09-06] MEDS: METAMUCIL (PSYLLIUM) PACKET PEG SCH ×2 (09:49→21:09)
[2021-09-06] MEDS: LIDOCAINE 5% (LIDODERM) PATCH TD SCH (09:49)
[2021-09-06] MEDS: OMEPRAZOLE SUSPENSION 20MG 10ML ORAL SYRINGE PEG SCH ×2 (09:49→21:11)
[2021-09-06] MEDS: POLYVINYL ALCOHOL OPHTH SOLN 15 ML(LIQUITEARS) OU SCH ×3 (09:49→21:12)
[2021-09-06] MEDS: ATORVASTATIN 10 MG TAB PEG SCH (09:50)
[2021-09-06] MEDS: guaiFENesin SYRUP 200MG 10ML UDC PEG SCH ×3 (09:50→21:10)
[2021-09-06] MEDS: ASPIRIN 81 MG CHEW TABLET PEG SCH (09:50)
[2021-09-06] MEDS: SERTRALINE HCL 25 MG TABLET PEG SCH ×2 (09:50→21:09)
[2021-09-06] MEDS: ZINC SULFATE 220 MG CAP PEG SCH (09:50)
[2021-09-06] MEDS: ASCORBIC ACID 500 MG TAB PEG SCH (09:50)
[2021-09-06] MEDS: PREPARATION H SUPP (HEMORRHOID) PR SCH ×2 (09:50→21:13)
[2021-09-06] MEDS: FIBER-CON 625 MG TAB PEG SCH (09:50)
[2021-09-06] MEDS: predniSONE 10 MG TAB PEG SCH (09:50)
[2021-09-06] MEDS: metFORMIN (GLUCOPHAGE) 500MG TAB PO SCH ×2 (09:50→18:02)
[2021-09-06] MEDS: PRIMIDONE 50MG TAB PEG SCH ×2 (09:50→21:09)
[2021-09-06] MEDS: ENOXAPARIN 30MG/0.3ML SYRINGE (J1650 PER 10MG) SC SCH ×2 (09:51→21:12)
[2021-09-06] MEDS: amLODIPine 5 MG TAB PEG SCH (09:51)
[2021-09-06] MEDS: ATENOLOL 12.5MG PER 1/2 TABLET PEG SCH ×2 (09:51→21:11)
[2021-09-06] MEDS: VANICREAM MOISTURIZING SKIN CREAM 113GM TUBE TOP SCH ×2 (09:52→21:13)
[2021-09-06] MEDS: LEVEMIR (INSULIN DETEMIR) 1 UNITS/0.01ML SC SCH ×2 (09:52→21:11)
[2021-09-06] MEDS: INSULIN LISPRO (NovoLOG) PER UNIT SC SCH ×4 (09:52→21:00)
[2021-09-06] MEDS: TRIAMCINOLONE ACET 0.1% CREAM 80 GM TOP SCH ×2 (09:53→21:13)
[2021-09-06 14:00] VITALS: BP 118/61
[2021-09-06 20:00] VITALS: BP 123/76
[2021-09-06] MEDS: LOSARTAN 25 MG TAB PEG SCH (21:09)
[2021-09-06] MEDS: GABAPENTIN 100 MG CAP PEG SCH (21:09)
[2021-09-06] MEDS: traZODone 25MG PER 1/2 TABLET PO SCH (21:10)
[2021-09-06] MEDS: OLANZapine 10 MG TAB PEG SCH (21:11)
[2021-09-06] MEDS: **NOTE PATIENT COMMENT** MISC XX SCH (21:13)
[2021-09-07] MEDS: REMEDY PHYTOPLEX Z-GUARD PASTE 113GM TUBE (FROM STOREROOM PRODUCT) TOP SCH ×6 (01:25→21:00)
[2021-09-07 06:00] VITALS: BP 136/73
[2021-09-07] MEDS: TOBRAMYCIN INHAL 300 MG/5 ML SOLN INH SCH ×3 (08:00→20:27)
[2021-09-07] MEDS: COMBIVENT RESPIMAT 100-20MCG INHALER 4GM INH SCH ×4 (08:00→20:26)
[2021-09-07] MEDS: MAGIC MOUTHWASH SUSPENSION BTL SSP SCH ×3 (08:22→16:47)
[2021-09-07] MEDS: INSULIN LISPRO (NovoLOG) PER UNIT SC SCH ×4 (08:23→20:58)
[2021-09-07] MEDS: metFORMIN (GLUCOPHAGE) 500MG TAB PO SCH ×2 (08:24→18:25)
[2021-09-07] MEDS: SALIVA SUBSTITUTE(MOUTHKOTE) BTL MT SCH ×4 (08:24→20:56)
[2021-09-07] MEDS: ASPIRIN 81 MG CHEW TABLET PEG SCH (08:24)
[2021-09-07] MEDS: FIBER-CON 625 MG TAB PEG SCH (08:25)
[2021-09-07] MEDS: predniSONE 10 MG TAB PEG SCH (08:25)
[2021-09-07] MEDS: OMEPRAZOLE SUSPENSION 20MG 10ML ORAL SYRINGE PEG SCH ×2 (08:26→20:58)
[2021-09-07] MEDS: PRIMIDONE 50MG TAB PEG SCH ×2 (08:26→20:57)
[2021-09-07] MEDS: ATORVASTATIN 10 MG TAB PEG SCH (08:26)
[2021-09-07] MEDS: amLODIPine 5 MG TAB PEG SCH (08:26)
[2021-09-07] MEDS: guaiFENesin SYRUP 200MG 10ML UDC PEG SCH ×3 (08:26→20:58)
[2021-09-07] MEDS: METAMUCIL (PSYLLIUM) PACKET PEG SCH ×2 (08:26→20:57)
[2021-09-07] MEDS: SERTRALINE HCL 25 MG TABLET PEG SCH ×2 (08:27→20:57)
[2021-09-07] MEDS: ASCORBIC ACID 500 MG TAB PEG SCH (08:27)
[2021-09-07] MEDS: ZINC SULFATE 220 MG CAP PEG SCH (08:27)
[2021-09-07] MEDS: POLYVINYL ALCOHOL OPHTH SOLN 15 ML(LIQUITEARS) OU SCH ×3 (08:28→20:56)
[2021-09-07] MEDS: LEVEMIR (INSULIN DETEMIR) 1 UNITS/0.01ML SC SCH ×2 (08:28→20:59)
[2021-09-07] MEDS: ENOXAPARIN 30MG/0.3ML SYRINGE (J1650 PER 10MG) SC SCH ×2 (08:28→20:59)
[2021-09-07] MEDS: TRIAMCINOLONE ACET 0.1% CREAM 80 GM TOP SCH ×2 (08:29→20:59)
[2021-09-07] MEDS: LIDOCAINE 5% (LIDODERM) PATCH TD SCH (08:29)
[2021-09-07] MEDS: PREPARATION H SUPP (HEMORRHOID) PR SCH ×2 (08:29→20:59)
[2021-09-07] MEDS: VANICREAM MOISTURIZING SKIN CREAM 113GM TUBE TOP SCH ×2 (08:30→20:56)
[2021-09-07] MEDS: ATENOLOL 12.5MG PER 1/2 TABLET PEG SCH ×2 (08:32→20:57)
[2021-09-07] MEDS: BUDESONIDE 0.25 MG/2 ML INHALATION SUSPENSION INH SCH ×2 (08:34→20:26)
[2021-09-07] MEDS: TIOTROPIUM INHALER/CAPSULE (SPIRIVA) INH SCH (08:34)
[2021-09-07 14:00] VITALS: BP 121/58
[2021-09-07 20:00] VITALS: BP 127/66
[2021-09-07] MEDS: traZODone 25MG PER 1/2 TABLET PO SCH (20:57)
[2021-09-07] MEDS: GABAPENTIN 100 MG CAP PEG SCH (20:57)
[2021-09-07] MEDS: OLANZapine 10 MG TAB PEG SCH (20:57)
[2021-09-07] MEDS: LOSARTAN 25 MG TAB PEG SCH (20:58)
[2021-09-07] MEDS: **NOTE PATIENT COMMENT** MISC XX SCH (21:00)
[2021-09-08] MEDS: REMEDY PHYTOPLEX Z-GUARD PASTE 113GM TUBE (FROM STOREROOM PRODUCT) TOP SCH ×6 (02:40→21:16)
[2021-09-08] MEDS: CHLORHEXIDINE GLUCONATE 0.12 % 15ML UDC (PERIDEX ORAL RINSE) SSP SCH (03:12)
[2021-09-08 06:00] VITALS: BP 110/68
[2021-09-08] MEDS: BUDESONIDE 0.25 MG/2 ML INHALATION SUSPENSION INH SCH ×2 (07:31→19:20)
[2021-09-08] MEDS: TIOTROPIUM INHALER/CAPSULE (SPIRIVA) INH SCH (07:31)
[2021-09-08] MEDS: TOBRAMYCIN INHAL 300 MG/5 ML SOLN INH SCH ×2 (07:31→19:20)
[2021-09-08] MEDS: COMBIVENT RESPIMAT 100-20MCG INHALER 4GM INH SCH ×4 (08:00→19:20)
[2021-09-08] MEDS: INSULIN LISPRO (NovoLOG) PER UNIT SC SCH ×4 (08:15→21:00)
[2021-09-08] MEDS: MAGIC MOUTHWASH SUSPENSION BTL SSP SCH ×3 (08:15→16:37)
[2021-09-08] MEDS: metFORMIN (GLUCOPHAGE) 500MG TAB PO SCH ×2 (08:15→17:36)
[2021-09-08] MEDS: ZINC SULFATE 220 MG CAP PEG SCH (08:16)
[2021-09-08] MEDS: SERTRALINE HCL 25 MG TABLET PEG SCH ×2 (08:16→21:12)
[2021-09-08] MEDS: PRIMIDONE 50MG TAB PEG SCH ×2 (08:16→21:12)
[2021-09-08] MEDS: amLODIPine 5 MG TAB PEG SCH (08:16)
[2021-09-08] MEDS: ASCORBIC ACID 500 MG TAB PEG SCH (08:16)
[2021-09-08] MEDS: FIBER-CON 625 MG TAB PEG SCH (08:16)
[2021-09-08] MEDS: guaiFENesin SYRUP 200MG 10ML UDC PEG SCH ×3 (08:17→21:12)
[2021-09-08] MEDS: predniSONE 10 MG TAB PEG SCH (08:17)
[2021-09-08] MEDS: ASPIRIN 81 MG CHEW TABLET PEG SCH (08:17)
[2021-09-08] MEDS: ATENOLOL 12.5MG PER 1/2 TABLET PEG SCH ×2 (08:17→21:11)
[2021-09-08] MEDS: ATORVASTATIN 10 MG TAB PEG SCH (08:18)
[2021-09-08] MEDS: ENOXAPARIN 30MG/0.3ML SYRINGE (J1650 PER 10MG) SC SCH ×2 (08:18→21:14)
[2021-09-08] MEDS: OMEPRAZOLE SUSPENSION 20MG 10ML ORAL SYRINGE PEG SCH ×2 (08:18→21:11)
[2021-09-08] MEDS: LEVEMIR (INSULIN DETEMIR) 1 UNITS/0.01ML SC SCH ×2 (08:18→21:14)
[2021-09-08] MEDS: METAMUCIL (PSYLLIUM) PACKET PEG SCH ×2 (08:19→21:12)
[2021-09-08] MEDS: POLYVINYL ALCOHOL OPHTH SOLN 15 ML(LIQUITEARS) OU SCH ×3 (08:33→21:07)
[2021-09-08] MEDS: SALIVA SUBSTITUTE(MOUTHKOTE) BTL MT SCH ×4 (08:33→21:06)
[2021-09-08] MEDS: PREPARATION H SUPP (HEMORRHOID) PR SCH ×2 (08:35→21:15)
[2021-09-08] MEDS: VANICREAM MOISTURIZING SKIN CREAM 113GM TUBE TOP SCH ×2 (08:36→21:08)
[2021-09-08] MEDS: LIDOCAINE 5% (LIDODERM) PATCH TD SCH (09:00)
[2021-09-08 14:00] VITALS: BP 125/62
[2021-09-08] MEDS: TRIAMCINOLONE ACET 0.1% CREAM 80 GM TOP SCH ×2 (15:12→21:15)
[2021-09-08] MEDS: traZODone 25MG PER 1/2 TABLET PO SCH (19:00)
[2021-09-08 20:00] VITALS: BP 132/61
[2021-09-08] MEDS: **NOTE PATIENT COMMENT** MISC XX SCH (21:00)
[2021-09-08] MEDS: LOSARTAN 25 MG TAB PEG SCH (21:09)
[2021-09-08] MEDS: GABAPENTIN 100 MG CAP PEG SCH (21:12)
[2021-09-08] MEDS: OLANZapine 10 MG TAB PEG SCH (21:12)
[2021-09-09] MEDS: REMEDY PHYTOPLEX Z-GUARD PASTE 113GM TUBE (FROM STOREROOM PRODUCT) TOP SCH ×6 (00:07→21:16)
[2021-09-09] MEDS: CHLORHEXIDINE GLUCONATE 0.12 % 15ML UDC (PERIDEX ORAL RINSE) SSP SCH (04:56)
[2021-09-09 06:00] VITALS: BP 104/57
[2021-09-09 06:18] LABS: BASO % 0.4 % (0.0-1.0); EOS # 0.1 10^3/uL (0.0-0.5); EOS % 1.3 % (0.0-3.0); HEMATOCRIT 32.7 % (42.0-52.0); HEMOGLOBIN 10.4 g/dl (13.5-17.5); LYMPH # 3.1 10^3/uL (1.5-5.0); LYMPH % 30.6 % (24.0-44.0); MEAN CORPUSCULAR HEMOGLOBIN 30.4 pg (27.0-33.0); MEAN CORPUSCULAR HGB CONC 31.8 g/dl (32.0-36.5); MEAN CORPUSCULAR VOLUME 95.6 fl (80.0-96.0); MONO # 0.9 10^3/uL (0.0-0.8); NEUTROPHILS # 5.8 10^3/uL (1.5-8.5); PLATELET COUNT, AUTOMATED 237 10^3/uL (150-450); RED BLOOD COUNT 3.42 10^6/uL (4.30-6.10)
[2021-09-09 06:30] LABS: BLOOD UREA NITROGEN 18 MG/DL (7-18); CARBON DIOXIDE LEVEL 37 MEQ/L (21-32); CHLORIDE LEVEL 100 MEQ/L (98-107); CREATININE FOR GFR 0.42 MG/DL (0.70-1.30); GLOMERULAR FILTRATION RATE > 60.0 (>35); GLUCOSE, FASTING 122 MG/DL (70-100); POTASSIUM SERUM 4.2 MEQ/L (3.5-5.1); SODIUM LEVEL 141 MEQ/L (136-145)
[2021-09-09] MEDS: BUDESONIDE 0.25 MG/2 ML INHALATION SUSPENSION INH SCH ×2 (07:32→21:21)
[2021-09-09] MEDS: COMBIVENT RESPIMAT 100-20MCG INHALER 4GM INH SCH ×4 (07:32→20:30)
[2021-09-09] MEDS: TIOTROPIUM INHALER/CAPSULE (SPIRIVA) INH SCH (07:32)
[2021-09-09] MEDS: TOBRAMYCIN INHAL 300 MG/5 ML SOLN INH SCH ×2 (08:00→20:00)
[2021-09-09] MEDS: INSULIN LISPRO (NovoLOG) PER UNIT SC SCH ×4 (08:22→21:00)
[2021-09-09] MEDS: guaiFENesin SYRUP 200MG 10ML UDC PEG SCH ×3 (08:22→21:13)
[2021-09-09] MEDS: METAMUCIL (PSYLLIUM) PACKET PEG SCH ×2 (08:22→21:13)
[2021-09-09] MEDS: MAGIC MOUTHWASH SUSPENSION BTL SSP SCH ×3 (08:22→17:24)
[2021-09-09] MEDS: LEVEMIR (INSULIN DETEMIR) 1 UNITS/0.01ML SC SCH ×2 (08:22→21:14)
[2021-09-09] MEDS: ENOXAPARIN 30MG/0.3ML SYRINGE (J1650 PER 10MG) SC SCH ×2 (08:23→21:15)
[2021-09-09] MEDS: metFORMIN (GLUCOPHAGE) 500MG TAB PO SCH ×2 (08:23→17:25)
[2021-09-09] MEDS: ASPIRIN 81 MG CHEW TABLET PEG SCH (08:23)
[2021-09-09] MEDS: SERTRALINE HCL 25 MG TABLET PEG SCH ×2 (08:23→21:13)
[2021-09-09] MEDS: LIDOCAINE 5% (LIDODERM) PATCH TD SCH ×2 (08:23→08:45)
[2021-09-09] MEDS: ASCORBIC ACID 500 MG TAB PEG SCH (08:23)
[2021-09-09] MEDS: ZINC SULFATE 220 MG CAP PEG SCH (08:23)
[2021-09-09] MEDS: OMEPRAZOLE SUSPENSION 20MG 10ML ORAL SYRINGE PEG SCH ×2 (08:23→21:13)
[2021-09-09] MEDS: FIBER-CON 625 MG TAB PEG SCH (08:23)
[2021-09-09] MEDS: PREPARATION H SUPP (HEMORRHOID) PR SCH ×2 (08:23→21:12)
[2021-09-09] MEDS: amLODIPine 5 MG TAB PEG SCH (08:24)
[2021-09-09] MEDS: ATORVASTATIN 10 MG TAB PEG SCH (08:24)
[2021-09-09] MEDS: PRIMIDONE 50MG TAB PEG SCH ×2 (08:24→21:13)
[2021-09-09] MEDS: predniSONE 10 MG TAB PEG SCH (08:24)
[2021-09-09] MEDS: SALIVA SUBSTITUTE(MOUTHKOTE) BTL MT SCH ×4 (08:25→21:36)
[2021-09-09] MEDS: TRIAMCINOLONE ACET 0.1% CREAM 80 GM TOP SCH ×2 (08:26→21:12)
[2021-09-09] MEDS: ATENOLOL 12.5MG PER 1/2 TABLET PEG SCH ×2 (08:26→21:13)
[2021-09-09] MEDS: POLYVINYL ALCOHOL OPHTH SOLN 15 ML(LIQUITEARS) OU SCH ×3 (08:26→21:15)
[2021-09-09] MEDS: VANICREAM MOISTURIZING SKIN CREAM 113GM TUBE TOP SCH ×2 (08:27→21:16)
[2021-09-09 14:00] VITALS: BP 122/64
[2021-09-09 19:47] VITALS: BP 119/59
[2021-09-09] MEDS: **NOTE PATIENT COMMENT** MISC XX SCH (21:00)
[2021-09-09] MEDS: GABAPENTIN 100 MG CAP PEG SCH (21:13)
[2021-09-09] MEDS: traZODone 25MG PER 1/2 TABLET PO SCH (21:13)
[2021-09-09] MEDS: LOSARTAN 25 MG TAB PEG SCH (21:14)
[2021-09-09] MEDS: OLANZapine 10 MG TAB PEG SCH (21:14)
[2021-09-10] MEDS: REMEDY PHYTOPLEX Z-GUARD PASTE 113GM TUBE (FROM STOREROOM PRODUCT) TOP SCH ×6 (00:59→22:24)
[2021-09-10 05:46] VITALS: BP 125/68
[2021-09-10] MEDS: TOBRAMYCIN INHAL 300 MG/5 ML SOLN INH SCH ×2 (07:30→20:30)
[2021-09-10] MEDS: BUDESONIDE 0.25 MG/2 ML INHALATION SUSPENSION INH SCH ×2 (07:30→20:30)
[2021-09-10] MEDS: TIOTROPIUM INHALER/CAPSULE (SPIRIVA) INH SCH (07:30)
[2021-09-10] MEDS: COMBIVENT RESPIMAT 100-20MCG INHALER 4GM INH SCH ×4 (07:30→20:30)
[2021-09-10] MEDS: MAGIC MOUTHWASH SUSPENSION BTL SSP SCH ×3 (07:51→17:14)
[2021-09-10] MEDS: PRIMIDONE 50MG TAB PEG SCH ×2 (07:52→22:20)
[2021-09-10] MEDS: ZINC SULFATE 220 MG CAP PEG SCH (07:52)
[2021-09-10] MEDS: INSULIN LISPRO (NovoLOG) PER UNIT SC SCH ×4 (07:52→22:23)
[2021-09-10] MEDS: LEVEMIR (INSULIN DETEMIR) 1 UNITS/0.01ML SC SCH (07:52)
[2021-09-10] MEDS: guaiFENesin SYRUP 200MG 10ML UDC PEG SCH ×3 (07:52→22:20)
[2021-09-10] MEDS: SERTRALINE HCL 25 MG TABLET PEG SCH ×2 (07:52→22:20)
[2021-09-10] MEDS: ASPIRIN 81 MG CHEW TABLET PEG SCH (07:53)
[2021-09-10] MEDS: PREPARATION H SUPP (HEMORRHOID) PR SCH ×2 (07:53→22:22)
[2021-09-10] MEDS: metFORMIN (GLUCOPHAGE) 500MG TAB PO SCH ×2 (07:53→17:15)
[2021-09-10] MEDS: METAMUCIL (PSYLLIUM) PACKET PEG SCH ×2 (07:53→22:20)
[2021-09-10] MEDS: predniSONE 10 MG TAB PEG SCH (07:53)
[2021-09-10] MEDS: ATORVASTATIN 10 MG TAB PEG SCH (07:53)
[2021-09-10] MEDS: ASCORBIC ACID 500 MG TAB PEG SCH (07:53)
[2021-09-10] MEDS: VANICREAM MOISTURIZING SKIN CREAM 113GM TUBE TOP SCH ×2 (07:54→22:24)
[2021-09-10] MEDS: SALIVA SUBSTITUTE(MOUTHKOTE) BTL MT SCH ×4 (07:54→22:20)
[2021-09-10] MEDS: OMEPRAZOLE SUSPENSION 20MG 10ML ORAL SYRINGE PEG SCH ×2 (07:54→22:20)
[2021-09-10] MEDS: ENOXAPARIN 30MG/0.3ML SYRINGE (J1650 PER 10MG) SC SCH (07:54)
[2021-09-10] MEDS: TRIAMCINOLONE ACET 0.1% CREAM 80 GM TOP SCH ×2 (07:55→22:21)
[2021-09-10] MEDS: amLODIPine 5 MG TAB PEG SCH (07:55)
[2021-09-10] MEDS: POLYVINYL ALCOHOL OPHTH SOLN 15 ML(LIQUITEARS) OU SCH ×3 (07:56→22:22)
[2021-09-10] MEDS: ATENOLOL 12.5MG PER 1/2 TABLET PEG SCH ×2 (07:56→22:19)
[2021-09-10] MEDS: LIDOCAINE 5% (LIDODERM) PATCH TD SCH (07:57)
[2021-09-10] MEDS ORDERED: PILL CUTTER 1 EACH XX PRN (10:35)
[2021-09-10] MEDS: CHLORHEXIDINE GLUCONATE 0.12 % 15ML UDC (PERIDEX ORAL RINSE) SSP SCH (11:29)
[2021-09-10] MEDS: FIBER-CON 625 MG TAB PEG SCH (12:53)
[2021-09-10 14:00] VITALS: BP 125/67
[2021-09-10 20:00] VITALS: BP 109/57
[2021-09-10] MEDS: LOSARTAN 25 MG TAB PEG SCH (22:18)
[2021-09-10] MEDS: traZODone 25MG PER 1/2 TABLET PO SCH (22:19)
[2021-09-10] MEDS: OLANZapine 10 MG TAB PEG SCH (22:20)
[2021-09-10] MEDS: GABAPENTIN 100 MG CAP PEG SCH (22:22)
[2021-09-10] MEDS: **NOTE PATIENT COMMENT** MISC XX SCH (22:22)
[2021-09-11] MEDS: REMEDY PHYTOPLEX Z-GUARD PASTE 113GM TUBE (FROM STOREROOM PRODUCT) TOP SCH ×6 (01:41→21:59)
[2021-09-11] MEDS: CHLORHEXIDINE GLUCONATE 0.12 % 15ML UDC (PERIDEX ORAL RINSE) SSP SCH (03:18)
[2021-09-11 06:00] VITALS: BP 129/59
[2021-09-11] MEDS: SALIVA SUBSTITUTE(MOUTHKOTE) BTL MT SCH ×4 (07:37→21:57)
[2021-09-11] MEDS: VANICREAM MOISTURIZING SKIN CREAM 113GM TUBE TOP SCH ×2 (07:37→22:00)
[2021-09-11] MEDS: ENOXAPARIN 40MG/0.4ML SYRINGE (J1650 PER 10MG) SC SCH (07:38)
[2021-09-11] MEDS: ASCORBIC ACID 500 MG TAB PEG SCH (07:38)
[2021-09-11] MEDS: INSULIN LISPRO (NovoLOG) PER UNIT SC SCH ×4 (07:38→21:00)
[2021-09-11] MEDS: predniSONE 10 MG TAB PEG SCH (07:39)
[2021-09-11] MEDS: SERTRALINE HCL 25 MG TABLET PEG SCH ×2 (07:39→21:57)
[2021-09-11] MEDS: amLODIPine 5 MG TAB PEG SCH (07:39)
[2021-09-11] MEDS: LIDOCAINE 5% (LIDODERM) PATCH TD SCH (07:39)
[2021-09-11] MEDS: ASPIRIN 81 MG CHEW TABLET PEG SCH (07:39)
[2021-09-11] MEDS: METAMUCIL (PSYLLIUM) PACKET PEG SCH ×2 (07:40→21:57)
[2021-09-11] MEDS: OMEPRAZOLE SUSPENSION 20MG 10ML ORAL SYRINGE PEG SCH ×2 (07:40→21:59)
[2021-09-11] MEDS: FIBER-CON 625 MG TAB PEG SCH (07:40)
[2021-09-11] MEDS: guaiFENesin SYRUP 200MG 10ML UDC PEG SCH ×3 (07:40→21:57)
[2021-09-11] MEDS: PRIMIDONE 50MG TAB PEG SCH ×2 (07:40→21:57)
[2021-09-11] MEDS: ZINC SULFATE 220 MG CAP PEG SCH (07:40)
[2021-09-11] MEDS: ATORVASTATIN 10 MG TAB PEG SCH (07:40)
[2021-09-11] MEDS: metFORMIN (GLUCOPHAGE) 500MG TAB PO SCH ×2 (07:40→18:18)
[2021-09-11] MEDS: PREPARATION H SUPP (HEMORRHOID) PR SCH ×2 (07:41→21:57)
[2021-09-11] MEDS: ATENOLOL 12.5MG PER 1/2 TABLET PEG SCH ×2 (07:41→21:58)
[2021-09-11] MEDS: POLYVINYL ALCOHOL OPHTH SOLN 15 ML(LIQUITEARS) OU SCH ×3 (07:41→21:59)
[2021-09-11] MEDS: MAGIC MOUTHWASH SUSPENSION BTL SSP SCH ×3 (07:41→18:19)
[2021-09-11] MEDS: TRIAMCINOLONE ACET 0.1% CREAM 80 GM TOP SCH ×2 (07:42→21:58)
[2021-09-11] MEDS: COMBIVENT RESPIMAT 100-20MCG INHALER 4GM INH SCH ×4 (07:55→21:01)
[2021-09-11] MEDS: BUDESONIDE 0.25 MG/2 ML INHALATION SUSPENSION INH SCH ×2 (07:55→21:01)
[2021-09-11] MEDS: TOBRAMYCIN INHAL 300 MG/5 ML SOLN INH SCH ×2 (07:55→20:00)
[2021-09-11] MEDS: TIOTROPIUM INHALER/CAPSULE (SPIRIVA) INH SCH (07:56)
[2021-09-11 10:04] LABS: BASO # 0.1 10^3/uL (0.0-0.2); BASO % 0.4 % (0.0-1.0); EOS # 0.2 10^3/uL (0.0-0.5); EOS % 1.5 % (0.0-3.0); HEMATOCRIT 35.3 % (42.0-52.0); HEMOGLOBIN 11.1 g/dl (13.5-17.5); LYMPH # 3.2 10^3/uL (1.5-5.0); LYMPH % 26.4 % (24.0-44.0); MEAN CORPUSCULAR HEMOGLOBIN 30.8 pg (27.0-33.0); MEAN CORPUSCULAR HGB CONC 31.4 g/dl (32.0-36.5); MEAN CORPUSCULAR VOLUME 98.1 fl (80.0-96.0); MONO % 8.5 % (2.0-8.0); NEUTROPHILS # 7.5 10^3/uL (1.5-8.5); NEUTROPHILS % 62.4 % (36.0-66.0); PLATELET COUNT, AUTOMATED 231 10^3/uL (150-450)
[2021-09-11 11:10] LABS: BLOOD UREA NITROGEN 19 MG/DL (7-18); CALCIUM LEVEL 8.6 MG/DL (8.8-10.2); CARBON DIOXIDE LEVEL 36 MEQ/L (21-32); CHLORIDE LEVEL 97 MEQ/L (98-107); GLOMERULAR FILTRATION RATE > 60.0 (>35); GLUCOSE, FASTING 167 MG/DL (70-100); POTASSIUM SERUM 3.9 MEQ/L (3.5-5.1); SODIUM LEVEL 136 MEQ/L (136-145)
[2021-09-11 14:00] VITALS: BP 99/51
[2021-09-11 14:48] VITALS: BP 124/60
[2021-09-11 20:00] VITALS: BP 135/71
[2021-09-11] MEDS: **NOTE PATIENT COMMENT** MISC XX SCH (21:00)
[2021-09-11] MEDS: traZODone 25MG PER 1/2 TABLET PO SCH (21:00)
[2021-09-11] MEDS: GABAPENTIN 100 MG CAP PEG SCH (21:57)
[2021-09-11] MEDS: LOSARTAN 25 MG TAB PEG SCH (21:58)
[2021-09-11] MEDS: OLANZapine 10 MG TAB PEG SCH (21:58)
[2021-09-12] MEDS: REMEDY PHYTOPLEX Z-GUARD PASTE 113GM TUBE (FROM STOREROOM PRODUCT) TOP SCH ×6 (01:10→21:09)
[2021-09-12 05:47] VITALS: BP 128/59
[2021-09-12] MEDS: COMBIVENT RESPIMAT 100-20MCG INHALER 4GM INH SCH ×4 (07:20→19:46)
[2021-09-12] MEDS: TIOTROPIUM INHALER/CAPSULE (SPIRIVA) INH SCH (07:21)
[2021-09-12] MEDS: BUDESONIDE 0.25 MG/2 ML INHALATION SUSPENSION INH SCH ×2 (07:21→19:46)
[2021-09-12] MEDS: TOBRAMYCIN INHAL 300 MG/5 ML SOLN INH SCH ×2 (07:21→19:45)
[2021-09-12] MEDS: INSULIN LISPRO (NovoLOG) PER UNIT SC SCH ×4 (07:35→19:56)
[2021-09-12] MEDS: PREPARATION H SUPP (HEMORRHOID) PR SCH ×2 (07:35→21:00)
[2021-09-12] MEDS: METAMUCIL (PSYLLIUM) PACKET PEG SCH ×2 (07:35→21:08)
[2021-09-12] MEDS: ENOXAPARIN 40MG/0.4ML SYRINGE (J1650 PER 10MG) SC SCH (07:35)
[2021-09-12] MEDS: LIDOCAINE 5% (LIDODERM) PATCH TD SCH (07:35)
[2021-09-12] MEDS: PRIMIDONE 50MG TAB PEG SCH ×2 (07:36→21:08)
[2021-09-12] MEDS: amLODIPine 5 MG TAB PEG SCH (07:36)
[2021-09-12] MEDS: guaiFENesin SYRUP 200MG 10ML UDC PEG SCH ×3 (07:36→21:08)
[2021-09-12] MEDS: OMEPRAZOLE SUSPENSION 20MG 10ML ORAL SYRINGE PEG SCH ×2 (07:36→21:09)
[2021-09-12] MEDS: ASCORBIC ACID 500 MG TAB PEG SCH (07:36)
[2021-09-12] MEDS: ZINC SULFATE 220 MG CAP PEG SCH (07:36)
[2021-09-12] MEDS: ATORVASTATIN 10 MG TAB PEG SCH (07:36)
[2021-09-12] MEDS: FIBER-CON 625 MG TAB PEG SCH (07:36)
[2021-09-12] MEDS: ATENOLOL 12.5MG PER 1/2 TABLET PEG SCH ×2 (07:36→21:10)
[2021-09-12] MEDS: metFORMIN (GLUCOPHAGE) 500MG TAB PO SCH ×2 (07:37→16:34)
[2021-09-12] MEDS: SALIVA SUBSTITUTE(MOUTHKOTE) BTL MT SCH ×4 (07:37→21:09)
[2021-09-12] MEDS: ASPIRIN 81 MG CHEW TABLET PEG SCH (07:37)
[2021-09-12] MEDS: MAGIC MOUTHWASH SUSPENSION BTL SSP SCH ×3 (07:38→16:34)
[2021-09-12] MEDS: predniSONE 10 MG TAB PEG SCH (07:38)
[2021-09-12] MEDS: SERTRALINE HCL 25 MG TABLET PEG SCH ×2 (07:38→21:08)
[2021-09-12] MEDS: POLYVINYL ALCOHOL OPHTH SOLN 15 ML(LIQUITEARS) OU SCH ×3 (07:38→21:10)
[2021-09-12] MEDS: VANICREAM MOISTURIZING SKIN CREAM 113GM TUBE TOP SCH ×2 (07:39→21:11)
[2021-09-12] MEDS: TRIAMCINOLONE ACET 0.1% CREAM 80 GM TOP SCH ×2 (07:40→21:11)
[2021-09-12 14:00] VITALS: BP 137/63
[2021-09-12] MEDS ORDERED: GABA-1171 PEG (14:43)
[2021-09-12] MEDS ORDERED: PRIM50TA6 GT (14:43)
[2021-09-12] MEDS ORDERED: Magic Mouthwash SSP (14:43)
[2021-09-12] MEDS ORDERED: TRAZ-252 PO (14:43)
[2021-09-12] MEDS ORDERED: BUDE0.254 INH (14:43)
[2021-09-12] MEDS ORDERED: PERI12LIQ SSP (14:43)
[2021-09-12] MEDS ORDERED: TIOT18INH INH (14:43)
[2021-09-12] MEDS ORDERED: COMBAER6 INH (14:43)
[2021-09-12] MEDS ORDERED: LOVE1INJ SC (14:43)
[2021-09-12] MEDS ORDERED: GUAI100S51 PEG (14:43)
[2021-09-12] MEDS ORDERED: PROB1CAP10 GT (14:43)
[2021-09-12] MEDS ORDERED: ASCO50TA PEG (14:43)
[2021-09-12] MEDS ORDERED: AMLO1TAB24 PEG (14:43)
[2021-09-12] MEDS ORDERED: META1POW PEG (14:43)
[2021-09-12] MEDS ORDERED: COZA1TAB PEG (14:43)
[2021-09-12] MEDS ORDERED: ATOR1TAB19 GT (14:43)
[2021-09-12] MEDS ORDERED: HYDR-643 GT (14:43)
[2021-09-12] MEDS ORDERED: FIBE62TA PEG (14:43)
[2021-09-12] MEDS ORDERED: Omeprazole Suspension PEG (14:43)
[2021-09-12] MEDS ORDERED: ZYPR10TA GT (14:43)
[2021-09-12] MEDS ORDERED: Zinc Oxide/Petrolatum,White TOP (14:43)
[2021-09-12] MEDS ORDERED: ATEN25TA PEG (14:43)
[2021-09-12] MEDS ORDERED: ZINC220CA PEG (14:43)
[2021-09-12] MEDS ORDERED: ASPI81CH8 PEG (14:43)
[2021-09-12] MEDS ORDERED: METF500T13 PO (14:43)
[2021-09-12] MEDS ORDERED: ROPI1TAB3 GT (14:43)
[2021-09-12 20:00] VITALS: BP 122/60
[2021-09-12] MEDS: traZODone 25MG PER 1/2 TABLET PO SCH (21:00)
[2021-09-12] MEDS: GABAPENTIN 100 MG CAP PEG SCH (21:08)
[2021-09-12] MEDS: OLANZapine 10 MG TAB PEG SCH (21:08)
[2021-09-12] MEDS: LOSARTAN 25 MG TAB PEG SCH (21:09)
[2021-09-12] MEDS: **NOTE PATIENT COMMENT** MISC XX SCH (21:11)
[2021-09-13] MEDS: REMEDY PHYTOPLEX Z-GUARD PASTE 113GM TUBE (FROM STOREROOM PRODUCT) TOP SCH ×4 (02:55→12:09)
[2021-09-13 06:00] VITALS: BP 123/82
[2021-09-13] MEDS: BUDESONIDE 0.25 MG/2 ML INHALATION SUSPENSION INH SCH (07:20)
[2021-09-13] MEDS: TIOTROPIUM INHALER/CAPSULE (SPIRIVA) INH SCH (07:20)
[2021-09-13] MEDS: COMBIVENT RESPIMAT 100-20MCG INHALER 4GM INH SCH ×2 (07:21→11:18)
[2021-09-13] MEDS: INSULIN LISPRO (NovoLOG) PER UNIT SC SCH ×3 (07:30→12:08)
[2021-09-13] MEDS ORDERED: TOBR1NEB INH (09:22)
[2021-09-13] MEDS: OMEPRAZOLE SUSPENSION 20MG 10ML ORAL SYRINGE PEG SCH (09:33)
[2021-09-13] MEDS: ENOXAPARIN 40MG/0.4ML SYRINGE (J1650 PER 10MG) SC SCH (09:34)
[2021-09-13] MEDS: CHLORHEXIDINE GLUCONATE 0.12 % 15ML UDC (PERIDEX ORAL RINSE) SSP SCH (09:34)
[2021-09-13] MEDS: guaiFENesin SYRUP 200MG 10ML UDC PEG SCH (09:35)
[2021-09-13] MEDS: ASCORBIC ACID 500 MG TAB PEG SCH (09:35)
[2021-09-13] MEDS: ASPIRIN 81 MG CHEW TABLET PEG SCH (09:35)
[2021-09-13] MEDS: ATORVASTATIN 10 MG TAB PEG SCH (09:35)
[2021-09-13] MEDS: metFORMIN (GLUCOPHAGE) 500MG TAB PO SCH (09:35)
[2021-09-13] MEDS: FIBER-CON 625 MG TAB PEG SCH (09:35)
[2021-09-13] MEDS: ZINC SULFATE 220 MG CAP PEG SCH (09:36)
[2021-09-13] MEDS: predniSONE 10 MG TAB PEG SCH (09:36)
[2021-09-13] MEDS: PRIMIDONE 50MG TAB PEG SCH (09:36)
[2021-09-13] MEDS: PREPARATION H SUPP (HEMORRHOID) PR SCH (09:36)
[2021-09-13] MEDS: SERTRALINE HCL 25 MG TABLET PEG SCH (09:36)
[2021-09-13 09:37] VITALS: BP 123/82
[2021-09-13] MEDS: amLODIPine 5 MG TAB PEG SCH (09:37)
[2021-09-13] MEDS: ATENOLOL 12.5MG PER 1/2 TABLET PEG SCH (09:37)
[2021-09-13] MEDS: METAMUCIL (PSYLLIUM) PACKET PEG SCH (09:38)
[2021-09-13] MEDS: SALIVA SUBSTITUTE(MOUTHKOTE) BTL MT SCH ×2 (09:38→12:09)
[2021-09-13] MEDS: MAGIC MOUTHWASH SUSPENSION BTL SSP SCH ×2 (09:38→12:09)
[2021-09-13] MEDS: LIDOCAINE 5% (LIDODERM) PATCH TD SCH (09:38)
[2021-09-13] MEDS: TRIAMCINOLONE ACET 0.1% CREAM 80 GM TOP SCH (09:39)
[2021-09-13] MEDS: POLYVINYL ALCOHOL OPHTH SOLN 15 ML(LIQUITEARS) OU SCH (09:39)
[2021-09-13] MEDS: VANICREAM MOISTURIZING SKIN CREAM 113GM TUBE TOP SCH (09:39)
[2021-09-13] MEDS: TOBRAMYCIN INHAL 300 MG/5 ML SOLN INH SCH (11:19)
== END 2021-09-13 14:25 | disposition home health service (06) | DRG 52 ==
LOC: M PM&R 15:00
PROVIDERS: ADMIT Physical Medicine & Rehabilitation; ATTEND Physical Medicine & Rehabilitation
DX: S14.12 Central cord syndrome of cervical spinal cord (principal); G82.52 Quadriplegia, C1-C4 incomplete; G82.54 Quadriplegia, C5-C7 incomplete; J69.0 Pneumonitis due to inhalation of food and vomit; G95.89 Other specified diseases of spinal cord; N39.0 Urinary tract infection, site not specified; I12.9 Hypertensive chronic kidney disease with stage 1 through stage 4 chronic kidney disease, or unspecified chronic kidney disease; K21.9 Gastro-esophageal reflux disease without esophagitis; E11.65 Type 2 diabetes mellitus with hyperglycemia; F32.A Depression, unspecified; G25.81 Restless legs syndrome; G47.33 Obstructive sleep apnea (adult) (pediatric); R25.1 Tremor, unspecified; M99.71 Connective tissue and disc stenosis of intervertebral foramina of cervical region; Z93.1 Gastrostomy status; N18.9 Chronic kidney disease, unspecified; L50.9 Urticaria, unspecified; E78.5 Hyperlipidemia, unspecified; R13.10 Dysphagia, unspecified; R31.9 Hematuria, unspecified; Z79.899 Other long term (current) drug therapy; G47.00 Insomnia, unspecified; B96.5 Pseudomonas (aeruginosa) (mallei) (pseudomallei) as the cause of diseases classified elsewhere; K64.8 Other hemorrhoids; J98.6 Disorders of diaphragm

== ENCOUNTER → 2021-09-19 | Outpatient (REF) | payer MEDICARE, OTHER ==
[~2021-09-19] MED LIST changes: +AMLO1TAB24 PEG; +APAP325T4 PO; +ARTIDRO OU; +ASCO50TA PEG; +ASPI81CH8 PEG; +ATEN25TA PEG; +ATEN25TA PO; +ATOR1TAB19 GT; +BENZ1LOZ9 MT; +BUDE0.254 INH; +COMBAER6 INH; +COZA1TAB PEG; +FIBE62TA PEG; +GABA-1171 PEG; +GUAI100S51 PEG; +HYDR-643 GT; +INSURSD SC; +LOVE1INJ SC; +LOVE1INJ2 SC; +META1POW PEG; +Magic Mouthwash SSP; +ONDA1INJ2 IV; +Omeprazole Suspension PEG; +PERI12LIQ SSP; +PRIM50TA6 GT; +PROB1CAP10 GT; +PROT1TAB2 GT; +ROPI1TAB3 GT; +TIOT18INH INH; +TOBR1NEB INH; +TRAZ-252 PO; +ZINC220CA PEG; +ZYPR10TA GT; +Zinc Oxide/Petrolatum,White TOP; -predniSONE 10 MG TAB PO SCH
== END ==
LOC: M SFHCPLAZ 16:03
PROVIDERS: ATTEND Internal Medicine Infectious Disease
DX: R19.7 Diarrhea, unspecified (principal)
CPT/HCPCS: 87507; G0463

== ENCOUNTER → 2021-09-25 | Outpatient (REF) | payer MEDICARE, OTHER ==
[2021-09-25 18:17] LABS: BACTERIA, URINE AUTO 3+ (NEGATIVE); MUCUS, URINE MODERATE (NEGATIVE); RBC, URINE AUTO 74 /HPF (0-3); SQUAMOUS EPITHELIAL CELL UR AU 1 /HPF (0-6); WBC, URINE AUTO TNTC /HPF (0-3)
== END ==
LOC: M LAB REF 16:14
PROVIDERS: ATTEND Physician Assistant Medical
DX: N39.0 Urinary tract infection, site not specified (principal)

== ENCOUNTER → 2021-09-30 | Outpatient (REF) | payer MEDICARE, OTHER | LOC: M SFHCWOUN 15:56 | PROVIDERS: ATTEND Surgery | DX: C46.7 Kaposi's sarcoma of other sites (principal) ==

== ENCOUNTER → 2021-10-18 | Outpatient (CLI) | payer MEDICARE, OTHER | LOC: M LAB 12:00 | PROVIDERS: ATTEND Surgery | DX: L81.9 Disorder of pigmentation, unspecified (principal) ==

== ENCOUNTER → 2021-10-23 | Outpatient (CLI) | payer MEDICARE, OTHER | LOC: M ONCR 08:53 | PROVIDERS: ATTEND General Practice | DX: C46.7 Kaposi's sarcoma of other sites (principal); G82.20 Paraplegia, unspecified; S12.9XXS Fracture of neck, unspecified, sequela; W19.XXXS Unspecified fall, sequela; Z79.51 Long term (current) use of inhaled steroids; Z79.82 Long term (current) use of aspirin; Z79.84 Long term (current) use of oral hypoglycemic drugs; Z79.899 Other long term (current) drug therapy; Z87.81 Personal history of (healed) traumatic fracture ==

== ENCOUNTER 2021-10-25 17:45 | Emergency (ER) | payer MEDICARE, OTHER ==
[~2021-10-25] VITALS: Ht 177.8 cm; Wt 65.9 kg
[2021-10-25] MEDS ORDERED: GASTROGRAFIN SOLUTION 30ML (Q9963) GT STA (21:56)
[2021-10-25 22:00] VITALS: BP 158/71
== END 2021-10-26 00:53 | disposition home or self-care (01) ==
LOC: M ED 17:45
DX: K94.23 Gastrostomy malfunction (principal); I10 Essential (primary) hypertension; J45.909 Unspecified asthma, uncomplicated; E78.5 Hyperlipidemia, unspecified; F41.9 Anxiety disorder, unspecified; Z79.51 Long term (current) use of inhaled steroids; Z79.82 Long term (current) use of aspirin; Z79.899 Other long term (current) drug therapy
CPT/HCPCS: 74018; 99284; Q9963

== ENCOUNTER 2021-11-10 09:37 | Emergency (ER) | payer MEDICARE, OTHER ==
[2021-11-10 10:56] LABS: BILIRUBIN, URINE MANUAL NEGATIVE (NEGATIVE); GLUCOSE, URINE (UA) MANUAL NEGATIVE (NEGATIVE); KETONE, URINE MANUAL NEGATIVE (NEGATIVE); UROBILINOGEN, URINE MANUAL NORMAL (NORMAL)
[2021-11-10 11:03] LABS: VENOUS HCO3 30.8 MEQ/L (23.0-27.0); VENOUS O2 SATURATION 98.3 % (60.0-80.0); VENOUS PARTIAL PRESSURE CO2 50.7 mmHg (38.0-50.0); VENOUS PARTIAL PRESSURE O2 126.1 mmHg (30.0-50.0); VENOUS PH 7.401 UNITS (7.330-7.430); VENOUS TOTAL CO2 32.3 MEQ/L (24.0-28.0)
[2021-11-10 11:07] LABS: BASO # 0.1 10^3/uL (0.0-0.2); BASO % 0.5 % (0.0-1.0); EOS # 0.6 10^3/uL (0.0-0.5); EOS % 4.7 % (0.0-3.0); HEMATOCRIT 33.5 % (42.0-52.0); HEMOGLOBIN 10.7 g/dl (13.5-17.5); LYMPH # 2.6 10^3/uL (1.5-5.0); LYMPH % 20.6 % (24.0-44.0); MEAN CORPUSCULAR HEMOGLOBIN 29.5 pg (27.0-33.0); MEAN CORPUSCULAR HGB CONC 31.9 g/dl (32.0-36.5); MEAN CORPUSCULAR VOLUME 92.3 fl (80.0-96.0); MONO # 1.1 10^3/uL (0.0-0.8); MONO % 8.7 % (2.0-8.0); NEUTROPHILS # 8.1 10^3/uL (1.5-8.5); NEUTROPHILS % 64.9 % (36.0-66.0); PLATELET COUNT, AUTOMATED 232 10^3/uL (150-450); RED BLOOD COUNT 3.63 10^6/uL (4.30-6.10); WHITE BLOOD COUNT 12.4 10^3/uL (4.0-10.0)
[2021-11-10 11:14] LABS: BACTERIA, URINE MOD AMOUNT; HYALINE CAST, URINE NONE SEEN /lpf (0-1)
[2021-11-10 11:15] LABS: AMORPHOUS SEDIMENT, URINE SMALL AMOUNT (NEGATIVE); MUCUS, URINE MOD AMOUNT (NEGATIVE); YEAST, URINE MOD AMOUNT
[2021-11-10 11:27] LABS: OSMOLALITY SERUM 278 MOSM/KG (280-301)
[2021-11-10 11:27] LABS: SQUAMOUS EPITHELIAL CELL URINE NONE SEEN /hpf (SMALL AMT)
[2021-11-10 11:49] LABS: ALBUMIN 2.6 GM/DL (3.2-5.2); ALT/SGPT 22 U/L (12-78); BILIRUBIN,DIRECT < 0.1 MG/DL (0.0-0.2); BILIRUBIN,TOTAL 0.2 MG/DL (0.2-1.0); BLOOD UREA NITROGEN 18 MG/DL (7-18); CALCIUM LEVEL 8.6 MG/DL (8.8-10.2); CARBON DIOXIDE LEVEL 32 MEQ/L (21-32); CHLORIDE LEVEL 92 MEQ/L (98-107); CREATININE FOR GFR 0.36 MG/DL (0.70-1.30); GLOMERULAR FILTRATION RATE > 60.0 (>35); GLUCOSE, FASTING 202 MG/DL (70-100); POTASSIUM SERUM 4.5 MEQ/L (3.5-5.1); SODIUM LEVEL 130 MEQ/L (136-145); TOTAL PROTEIN 6.5 GM/DL (6.4-8.2)
[2021-11-10] MEDS ORDERED: cefTRIAXone SOD 2 GM in D5W MINI-BAG PLUS 50 ML IV ONE (11:50)
[2021-11-10] MEDS ORDERED: CEFD300C PO (14:19)
[2021-11-10] MEDS ORDERED: LIDOCAINE 2% 5ML JELLY UROJET TOP ONE (14:40)
[2021-11-10 15:57] VITALS: BP 112/60
== END 2021-11-10 16:54 | disposition home or self-care (01) ==
LOC: EDBD 09:37 → M ED 09:37
DX: N39.0 Urinary tract infection, site not specified (principal); R13.10 Dysphagia, unspecified; E11.9 Type 2 diabetes mellitus without complications; I10 Essential (primary) hypertension; E78.5 Hyperlipidemia, unspecified; Z79.51 Long term (current) use of inhaled steroids; Z79.4 Long term (current) use of insulin; Z79.899 Other long term (current) drug therapy
CPT/HCPCS: 51702; 70450; 71045; 80048; 80076; 81000; 81015; 82140; 82803; 83605; 83930; 84443; 84484; 85025; 87040; 87088; 87186; 87486; 87581; 87633; 87798; 93005; 93041; 94760; 96365; 96366; 99285; J0696

== ENCOUNTER → 2022-01-03 | Outpatient (RCR) | payer MEDICARE, OTHER ==
[~2022-01-03] MED LIST changes: +CEFD300C PO
== END ==
LOC: M PT 12-05 14:39
PROVIDERS: ATTEND Internal Medicine
DX: G82.52 Quadriplegia, C1-C4 incomplete (principal)

== ENCOUNTER → 2022-01-08 | Outpatient (CLI) | payer MEDICARE, OTHER ==
[~2022-01-08] MED LIST changes: +BARIUM SULFATE 700 MG TABLET (E-Z-DISK) As Ordered ONE; +E-Z-PAQUE 96% w/w SUSP 176GM BTL As Ordered ONE; +VARIBAR NECTAR 40% w/v 240ML SUSP BTL As Ordered ONE; +VARIBAR PUDDING 40% w/v 230ML TUBE As Ordered ONE
== END ==
LOC: M RAD 10:45
PROVIDERS: ATTEND Internal Medicine
DX: G82.52 Quadriplegia, C1-C4 incomplete (principal); E43 Unspecified severe protein-calorie malnutrition

== ENCOUNTER 2022-01-31 10:39 | Outpatient (RCR) | payer MEDICARE, OTHER ==
[~2022-01-31 10:39] MED LIST changes: -BARIUM SULFATE 700 MG TABLET (E-Z-DISK) As Ordered ONE; -E-Z-PAQUE 96% w/w SUSP 176GM BTL As Ordered ONE; -VARIBAR NECTAR 40% w/v 240ML SUSP BTL As Ordered ONE; -VARIBAR PUDDING 40% w/v 230ML TUBE As Ordered ONE
== END 2022-02-03 23:59 | disposition home or self-care (01) ==
LOC: M PT 10:39
PROVIDERS: ATTEND Internal Medicine
DX: G82.52 Quadriplegia, C1-C4 incomplete (principal)

== ENCOUNTER → 2022-02-07 | Outpatient (REF) | payer MEDICARE, OTHER ==
[2022-02-07 13:43] LABS: APPEARANCE, URINE MANUAL HAZY (CLEAR); COLOR, URINE MANUAL YELLOW (YELLOW)
[2022-02-07 13:44] LABS: BILIRUBIN, URINE MANUAL NEGATIVE (NEGATIVE); BLOOD URINE MANUAL TRACE (NEGATIVE); GLUCOSE, URINE (UA) MANUAL 4+(1000 MG/DL) mg/dL (NEGATIVE); KETONE, URINE MANUAL 1+ mg/dL (NEGATIVE); LEUKOCYTE ESTERASE, URINE MAN POSITIVE (NEGATIVE); NITRITE, URINE MANUAL POSITIVE (NEGATIVE); PROTEIN, URINE MANUAL TRACE mg/dL (NEGATIVE); UROBILINOGEN, URINE MANUAL NORMAL (NORMAL)
[2022-02-07 14:06] LABS: BACTERIA, URINE LARGE AMOUNT; HYALINE CAST, URINE NONE SEEN /lpf (0-1); MUCUS, URINE SMALL AMOUNT (NEGATIVE); RBC, URINE 0-1 /hpf (0-3); SQUAMOUS EPITHELIAL CELL URINE SMALL AMOUNT /hpf (SMALL AMT); WBC, URINE TNTC /hpf (0-3)
== END ==
LOC: M SMT 13:23
PROVIDERS: ATTEND Nurse Practitioner Women's Health
DX: R30.0 Dysuria (principal)

== ENCOUNTER → 2022-03-05 | Outpatient (RCR) | payer MEDICARE, OTHER | LOC: M PT 02-05 11:24 | PROVIDERS: ATTEND Internal Medicine | DX: G82.52 Quadriplegia, C1-C4 incomplete (principal) ==

== ENCOUNTER 2022-04-04 10:44 | Outpatient (RCR) | payer MEDICARE, OTHER ==
[~2022-04-04 10:44] MED LIST changes: -DILA1INJ2 IV; +HYDR0.5S8 IV
== END 2022-04-05 ==
LOC: M PT 10:44
PROVIDERS: ATTEND Internal Medicine
DX: R13.12 Dysphagia, oropharyngeal phase (principal)

== ENCOUNTER 2022-05-05 09:15 | Outpatient (RCR) | payer MEDICARE, OTHER | END 2022-05-06 | LOC: M PT 09:15 | PROVIDERS: ATTEND Internal Medicine | DX: R13.12 Dysphagia, oropharyngeal phase (principal) ==

== ENCOUNTER → 2022-05-13 | Outpatient (POV) | payer MEDICARE, OTHER ==
[~2022-05-13] VITALS: Ht 177.8 cm; Wt 77.7 kg
[2022-05-13 10:20] VITALS: BP 114/66
== END ==
LOC: M IRPOV 10:02
PROVIDERS: ATTEND Radiology Diagnostic Radiology
DX: Z43.1 Encounter for attention to gastrostomy (principal); I10 Essential (primary) hypertension; E11.9 Type 2 diabetes mellitus without complications; K21.9 Gastro-esophageal reflux disease without esophagitis; I51.9 Heart disease, unspecified; G82.51 Quadriplegia, C1-C4 complete; Z79.82 Long term (current) use of aspirin; Z79.84 Long term (current) use of oral hypoglycemic drugs; Z79.899 Other long term (current) drug therapy

== ENCOUNTER 2022-05-30 11:00 | Outpatient (RCR) | payer MEDICARE, OTHER | END 2022-06-03 | LOC: M PT 11:00 | PROVIDERS: ATTEND Internal Medicine | DX: R13.12 Dysphagia, oropharyngeal phase (principal) ==

== ENCOUNTER → 2022-07-04 | Outpatient (RCR) | payer MEDICARE, OTHER | LOC: M PT 06-04 10:52 | PROVIDERS: ATTEND Internal Medicine | DX: I63.9 Cerebral infarction, unspecified (principal); R13.10 Dysphagia, unspecified ==

== ENCOUNTER 2022-08-01 10:38 | Outpatient (RCR) | payer MEDICARE, OTHER | END 2022-08-03 | LOC: M PT 10:38 | PROVIDERS: ATTEND Internal Medicine | DX: R13.12 Dysphagia, oropharyngeal phase (principal) ==

== ENCOUNTER → 2022-09-03 | Outpatient (RCR) | payer MEDICARE, OTHER | LOC: M PT 08-06 10:43 | PROVIDERS: ATTEND Internal Medicine | DX: I69.391 Dysphagia following cerebral infarction (principal) ==

== ENCOUNTER → 2023-01-21 | Outpatient (REF) | payer MEDICARE, OTHER ==
[~2023-01-21] MED LIST changes: -COZA1TAB PEG; +LOSA-527 PEG; -ROPI1TAB3 GT; -ROPI1TAB3 PO; +ROPI1TAB73 GT; +ROPI1TAB73 PO
[2023-01-21 18:51] LABS: APPEARANCE, URINE HAZY (CLEAR); BACTERIA, URINE AUTO NEGATIVE (NEGATIVE); BILIRUBIN, URINE AUTO NEGATIVE (NEGATIVE); BLOOD, URINE BLOOD NEGATIVE (NEGATIVE); COLOR, URINE YELLOW (YELLOW); GLUCOSE, URINE (UA) AUTO 3+ mg/dL (NEGATIVE); KETONE, URINE AUTO NEGATIVE (NEGATIVE); LEUKOCYTE ESTERASE, URINE AUTO NEGATIVE (NEGATIVE); MUCUS, URINE SMALL (NEGATIVE); NITRITE, URINE AUTO NEGATIVE (NEGATIVE); PROTEIN, URINE AUTO NEGATIVE (NEGATIVE); RBC, URINE AUTO 1 /HPF (0-3); SPECIFIC GRAVITY URINE AUTO 1.037 (1.002-1.035); SQUAMOUS EPITHELIAL CELL UR AU 0 /HPF (0-6); UROBILINOGEN, URINE AUTO 0.2 mg/dL (0.0-2.0); WBC, URINE AUTO 1 /HPF (0-3)
== END ==
LOC: M SMT 18:05
PROVIDERS: ATTEND Urology
DX: R39.9 Unspecified symptoms and signs involving the genitourinary system (principal)

== ENCOUNTER → 2023-02-03 | Outpatient (CLI) | payer MEDICARE, OTHER | LOC: M LAB 15:00 | PROVIDERS: ATTEND Urology | DX: R30.0 Dysuria (principal); N40.1 Benign prostatic hyperplasia with lower urinary tract symptoms ==

== ENCOUNTER → 2023-05-11 | Outpatient (REF) | payer MEDICARE, OTHER ==
[~2023-05-11] MED LIST changes: +INSU100V19 SC; -INSURSD SC
[2023-05-11 15:36] LABS: HIV 1&2 SCREEN NEGATIVE (NEGATIVE)
[2023-05-11 15:45] LABS: HEPATITIS B CORE ANTIBODY IGM NEGATIVE (NEGATIVE); HEPATITIS C VIRUS ABY INDEX < 0.02 INDEX (<0.8)
== END ==
LOC: M LAB REF 12:51
PROVIDERS: ATTEND Internal Medicine
DX: Z72.52 High risk homosexual behavior (principal)

== ENCOUNTER 2023-08-17 07:28 | Emergency (ER) | payer MEDICARE, OTHER ==
[~2023-08-17] VITALS: Ht 180.3 cm; Wt 75.0 kg
[2023-08-17] MEDS ORDERED: LOSA50TA28 PO (07:42)
[2023-08-17] MEDS ORDERED: LEVE250T5 (07:42)
[2023-08-17] MEDS ORDERED: GLIP5TAB17 (07:42)
[2023-08-17] MEDS ORDERED: LISI2.5T9 (07:42)
[2023-08-17] MEDS ORDERED: DULA3PEN (07:42)
[2023-08-17] MEDS ORDERED: ATOR1TAB19 PO (07:42)
[2023-08-17] MEDS ORDERED: PRIM50TA6 PO (07:42)
[2023-08-17] MEDS ORDERED: DULO1CAP5 (07:42)
[2023-08-17 08:18] LABS: BASO % 0.8 % (0.0-1.0); EOS # 0.1 10^3/uL (0.0-0.5); EOS % 2.7 % (0.0-3.0); HEMATOCRIT 48.2 % (42.0-52.0); HEMOGLOBIN 16.8 g/dl (13.5-17.5); LYMPH # 2.2 10^3/uL (1.5-5.0); LYMPH % 41.3 % (24.0-44.0); MEAN CORPUSCULAR HEMOGLOBIN 32.1 pg (27.0-33.0); MEAN CORPUSCULAR HGB CONC 34.9 g/dl (32.0-36.5); MONO # 0.5 10^3/uL (0.0-0.8); MONO % 8.9 % (2.0-8.0); NEUTROPHILS # 2.4 10^3/uL (1.5-8.5); NEUTROPHILS % 45.9 % (36.0-66.0); PLATELET COUNT, AUTOMATED 205 10^3/uL (150-450); RED BLOOD COUNT 5.24 10^6/uL (4.30-6.10); WHITE BLOOD COUNT 5.3 10^3/uL (4.0-10.0)
[2023-08-17 08:31] LABS: INR 1.06; PROTHROMBIN TIME 13.5 SECONDS (12.5-14.5)
[2023-08-17] MEDS ORDERED: SULF1TAB23 PO (09:00)
[2023-08-17 09:07] VITALS: BP 134/70; TEMP 98.9; O2SAT 96
== END 2023-08-17 10:12 | disposition home or self-care (01) ==
LOC: M ED 07:28
DX: N30.01 Acute cystitis with hematuria (principal); E11.9 Type 2 diabetes mellitus without complications; I10 Essential (primary) hypertension; N40.0 Benign prostatic hyperplasia without lower urinary tract symptoms; Z87.442 Personal history of urinary calculi; Z79.82 Long term (current) use of aspirin; Z79.02 Long term (current) use of antithrombotics/antiplatelets; Z79.811 Long term (current) use of aromatase inhibitors; Z79.899 Other long term (current) drug therapy

== ENCOUNTER → 2024-04-15 | Outpatient (CLI) | payer MEDICARE, OTHER ==
[~2024-04-15] MED LIST changes: +BARIUM SULFATE 700 MG TABLET (E-Z-DISK) As Ordered ONE; +DULA3PEN; +DULO1CAP5; +E-Z-PAQUE 96% w/w SUSP 176GM BTL As Ordered ONE; +GABA-1172 PO; -GABA-282 PO; +GLIP5TAB17; +LEVE250T5; +LISI2.5T9; -LORA2TA PO; +LORA2TAB15 PO; +LOSA50TA28 PO; +ONDA-282 PO; -ONDA4TAB6 PO; +SULF1TAB23 PO; +VARIBAR NECTAR 40% w/v 240ML SUSP BTL As Ordered ONE; +VARIBAR PUDDING 40% w/v 230ML TUBE As Ordered ONE
== END ==
LOC: M RAD 10:59
PROVIDERS: ATTEND Internal Medicine
DX: R05.3 Chronic cough (principal); R13.10 Dysphagia, unspecified

== ENCOUNTER 2025-03-22 15:57 | Emergency (ER) | payer MEDICARE, OTHER ==
[~2025-03-22] VITALS: Ht 177.8 cm; Wt 75.0 kg
[~2025-03-22 15:57] MED LIST changes: -BARIUM SULFATE 700 MG TABLET (E-Z-DISK) As Ordered ONE; -E-Z-PAQUE 96% w/w SUSP 176GM BTL As Ordered ONE; -INSU100V19 SC; +INSURSDRX SC; +SULF-7 PO; -SULF1TAB23 PO; -VARIBAR NECTAR 40% w/v 240ML SUSP BTL As Ordered ONE; -VARIBAR PUDDING 40% w/v 230ML TUBE As Ordered ONE
[2025-03-22 18:44] VITALS: BP 109/61; TEMP 97.1; O2SAT 97
== END 2025-03-22 18:53 | disposition home or self-care (01) ==
LOC: M ED 15:57
DX: M79.601 Pain in right arm (principal); R22.31 Localized swelling, mass and lump, right upper limb; I10 Essential (primary) hypertension; N40.0 Benign prostatic hyperplasia without lower urinary tract symptoms; E11.9 Type 2 diabetes mellitus without complications; Z79.82 Long term (current) use of aspirin; Z79.899 Other long term (current) drug therapy; Z79.02 Long term (current) use of antithrombotics/antiplatelets